=== PATIENT | female | born 2000 | race Caucasian/White ===

== ENCOUNTER 2023-01-08 12:24 | Outpatient (CLI) | payer BC, SELFPAY ==
--- NOTE | 2023-01-08 12:15 | CRLHL7_ITS ---
For Patients: As a result of the Cures Act, medical imaging exams and procedure reports are released immediately into your electronic medical record. You may view this report before your referring provider. If you have questions, please contact your health care provider. INDICATION: First trimester scan, establish dates. COMPARISON: None. TECHNIQUE: Real-time branch-scale imaging of the pelvis was performed. FINDINGS: Sonographic imaging demonstrates a single living intrauterine gestation. The embryo demonstrates a regular cardiac rate measuring 183 beats per minute. The embryo`s crown-rump length measurement of 1.7 cm corresponds to a gestational age of 8 weeks 0 days with a sonographic due date of August 20, 2023. There is a normal-appearing yolk sac measuring up to 3.9 mm. There are no gross abnormalities noted within the embryo at this early state of development. The placenta has not yet developed. The gestational sac has a normal appearance and there is no evidence of a perigestational hemorrhage. The amount of fluid within the sac appears appropriate for gestational age. The cervix is closed. The myometrium appears normal. The ovaries are of normal size. The right ovary measures 3.2 x 2.1 x 1.8 cm. The left ovary measures 3.4 x 2.5 x 2.1 cm. Small corpus luteum cyst of in the left ovary. There are no suspicious fluid collections noted in the cul-de-sac. IMPRESSION: Normal first trimester OB ultrasound exam. Gestational age calculated at 8 weeks 0 days with a sonographic due date of August 20, 2023. Dictated by Donis Awan MD @ 01/08/2023 4:05:48 PM (Electronically Signed)
== END 2023-01-08 12:25 | disposition home or self-care (01) ==
LOC: US 12:27
PROVIDERS: Visit Provider Registered Nurse
DX: Z34.90 Encounter for supervision of normal pregnancy, unspecified, unspecified trimester (principal)
CPT/HCPCS: 76817; 86592; 86703; 86762; 86787; 86803; 86850; 86900; 86901; 87086; 87340; 87491; 87591

== ENCOUNTER 2023-03-31 12:18 | Outpatient (CLI) | payer BC, SELFPAY ==
--- NOTE | 2023-03-31 12:15 | CRLHL7_ITS ---
For Patients: As a result of the Century Cures Act, medical imaging exams and procedure reports are released immediately into your electronic medical record. You may view this report before your referring provider. If you have questions, please contact your health care provider. INDICATION: Evaluate anatomy. COMPARISON: None. TECHNIQUE: Real time branch scale imaging of the fetus was performed. FINDINGS: Sonographic imaging demonstrates a single living intrauterine gestation. Fetus demonstrates a regular cardiac rate of 149 beats per minute. Fetus has a breech orientation and longitudinal lie. The placenta lies anteriorly without evidence of placenta previa. The placenta is somewhat low lying approximately 2.1 cm from the internal cervical os. Amniotic fluid volume appears normal. Single deepest vertical pocket: 4.2 cm. The cervix is closed and measures 4.0 cm in length. The composite ultrasound gestational age is calculated at 20 weeks 4 days with an estimated sonographic due date of August 14, 2023. The estimated weight is 386 grams which lies at the 91st percentile. The following biometric measurements were obtained: Biparietal diameter: 4.5 cm/19 weeks 4 days 32% Head circumference: 17.6 cm/20 weeks 1 day 48% Abdominal circumference: 16.2 cm/21 weeks 2 days 83rd% Femur length: 3.4 cm/20 weeks 6 days 72nd% The HC/AC ratio measures: 1.09 range (1.07-1.25) On anatomic survey, there is a normal appearance of the cerebral ventricles, cisterna magna and cerebellum. The nose, lips, and facial profile appear normal. The cervical, thoracic and lumbar spine are well visualized and appear normal. There is a normal four-chamber heart view and the left and right ventricular outflow tracts appear normal. diaphragm, stomach, kidneys and bladder appear normal. There is a normal three-vessel cord and cord insertion site. The four extremities appear normal. IMPRESSION: Normal OB ultrasound exam with concordance of clinical and sonographic dating. No intrinsic abnormalities noted on anatomic survey. Questionable low-lying placenta approximately 2.1 cm from the internal cervical os. Dictated by Donis Awan MD @ 03/31/2023 1:35:22 PM (Electronically Signed)
== END 2023-03-31 12:19 | disposition home or self-care (01) ==
LOC: US 12:19
PROVIDERS: Visit Provider Advanced Practice Midwife
DX: Z34.92 Encounter for supervision of normal pregnancy, unspecified, second trimester (principal); Z3A.20 20 weeks gestation of pregnancy
CPT/HCPCS: 76805

== ENCOUNTER 2023-05-24 12:08 | Outpatient (CLI) | payer BC, SELFPAY ==
--- NOTE | 2023-05-24 12:15 | CRLHL7_ITS ---
For Patients: As a result of the Century Cures Act, medical imaging exams and procedure reports are released immediately into your electronic medical record. You may view this report before your referring provider. If you have questions, please contact your health care provider. INDICATION: f/u low-lying placenta COMPARISON: 03/31/2023 TECHNIQUE: Real time branch scale imaging of the fetus was performed. FINDINGS: Sonographic imaging demonstrates a single living intrauterine gestation. Fetus demonstrates a regular cardiac rate of 138 beats per minute. Fetus has a transverse position. The placenta lies anteriorly. With transvaginal measurement, the anterior placental edge is located 1.9 cm from the internal cervical os. The cervix is closed and measures 5.4 cm. Amniotic fluid volume appears normal and there is a single deepest vertical pocket: 5.5 cm. The estimated weight is 1379gm which lies at the 93rd %. On the prior OB ultrasound exam dated 03/31/2023 the estimated weight was at the 91st%. BPD 70th percentile. HC 77th percentile. AC 89th percentile. FL 78th percentile. The HC/AC ratio measures 1.07 range (0.99-1.2). IMPRESSION: With transvaginal measurement, the anterior placental edge is located 1.9 cm from the internal cervical os. The cervix is closed and measures 5.4 cm. Sonographic gestational age 29 weeks 2 days and sonographic due date 08/07/2023. Sonographic age is 11 days ahead of the clinical age. Estimated weight 93rd percentile. Abdominal circumference 89th percentile. Dictated by Alex Wiggins MD @ 05/26/2023 6:25:44 AM (Electronically Signed)
== END 2023-05-24 12:09 | disposition home or self-care (01) ==
LOC: US 12:08
PROVIDERS: Visit Provider Advanced Practice Midwife
DX: O44.43 Low lying placenta NOS or without hemorrhage, third trimester (principal); O36.63X0 Maternal care for excessive fetal growth, third trimester, not applicable or unspecified; Z3A.29 29 weeks gestation of pregnancy
CPT/HCPCS: 76815; 76816; 76817; 86592

== ENCOUNTER 2023-06-23 09:10 | Outpatient (CLI) | payer BC, SELFPAY ==
--- NOTE | 2023-06-23 09:15 | CRLHL7_ITS ---
For Patients: As a result of the Century Cures Act, medical imaging exams and procedure reports are released immediately into your electronic medical record. You may view this report before your referring provider. If you have questions, please contact your health care provider. INDICATION: f/u low-lying placenta COMPARISON: 05/24/2023 TECHNIQUE: Real time branch scale imaging of the fetus was performed. FINDINGS: Sonographic imaging demonstrates a single living intrauterine gestation. Fetus demonstrates a regular cardiac rate of 137 beats per minute. Fetus has a vertex position. The placenta lies anteriorly without evidence of placenta previa. With transvaginal measurement, the edge of the placenta is located 6.4 cm from the internal cervical os. Amniotic fluid volume appears normal and there is a single deepest vertical pocket: 8.1 cm. KAYLEEN 17.0 cm. IMPRESSION: Vertex position. Placental edge is located 6.4 cm from the internal cervical os with transvaginal imaging. The previously noted low lying placenta has since resolved. Dictated by Alex Wiggins MD @ 06/23/2023 10:34:51 AM (Electronically Signed)
== END 2023-06-23 09:11 | disposition home or self-care (01) ==
LOC: US 09:11
PROVIDERS: Visit Provider Advanced Practice Midwife
DX: O44.40 Low lying placenta NOS or without hemorrhage, unspecified trimester (principal)
CPT/HCPCS: 76816; 76817

== ENCOUNTER 2023-07-22 13:45 | Outpatient (CLI) | payer BC, SELFPAY | END 2023-07-22 13:46 | disposition home or self-care (01) | PROVIDERS: Visit Provider Obstetrics & Gynecology | DX: Z34.93 Encounter for supervision of normal pregnancy, unspecified, third trimester (principal); O44.43 Low lying placenta NOS or without hemorrhage, third trimester; Z3A.36 36 weeks gestation of pregnancy | CPT/HCPCS: 87081; 87653 ==

== ENCOUNTER 2023-07-28 10:59 | Outpatient (CLI) | payer BC, SELFPAY ==
--- NOTE | 2023-07-28 11:00 | CRLHL7_ITS ---
For Patients: As a result of the Century Cures Act, medical imaging exams and procedure reports are released immediately into your electronic medical record. You may view this report before your referring provider. If you have questions, please contact your health care provider. INDICATION: Third trimester scan, evaluate growth. COMPARISON: 06/23/2023 TECHNIQUE: Real time branch scale imaging of the fetus was performed. FINDINGS: Sonographic imaging demonstrates a single living intrauterine gestation. Fetus demonstrates a regular cardiac rate of 134 beats per minute. Fetus has a vertex position. The placenta lies left anterior. Amniotic fluid volume appears normal and there is a single deepest vertical pocket: 8.5 cm. The estimated weight is 3442gm which lies at the 86th %. On the prior OB ultrasound exam dated 05/24/2023 the estimated weight was at the 93rd%. BPD 80th percentile. HC 69th percentile. AC 94th percentile. FL 66th percentile. The HC/AC ratio measures 0.98 range (0.89-1.06). IMPRESSION: Sonographic gestational age 38 weeks 1 day and sonographic due date of 08/10/2023. Sonographic age 8 days ahead of the clinical age. Estimated weight 86th percentile. Abdominal circumference 94th percentile. Dictated by Alex Wiggins MD @ 07/28/2023 12:30:12 PM (Electronically Signed)
== END 2023-07-28 11:00 | disposition home or self-care (01) ==
LOC: US 10:59
PROVIDERS: Visit Provider Obstetrics & Gynecology
DX: Z34.93 Encounter for supervision of normal pregnancy, unspecified, third trimester (principal); Z3A.38 38 weeks gestation of pregnancy
CPT/HCPCS: 76816

== ENCOUNTER 2023-08-02 15:00 | Emergency (ER) | payer BC, SELFPAY ==
[2023-08-02] VITALS (13 sets, daily range): BP systolic 104–129; BP diastolic 71–80; PULSE 87–115; RESP 19; TEMP 36.8; O2SAT 98–100
--- NOTE | 2023-08-02 16:10 | ED.GENADULT ---
HPI - General Adult General Chief complaint: Unspecified Complaint, Adult Stated complaint: brain fog, spot in vision Time Seen by Provider: 08/02/23 15:30 History of Present Illness HPI narrative: Patient reports some time this AM she had a spot in her vision. Also around this time she reports having difficulty finding her words, she describes as brain fog. Symptoms are better now but she feels like a beginning of a headache starting. Established delivery date 08/18/2023. 23-year-old woman sent over from [facility] with concerns of visual changes and ?brain fog?. The loss of vision she describes as centrally demonstrating a 4 in [place] or so. Seemed to be present though even when she was closing her eyes. Described as having some word-finding difficulty in a brain fog after that; it has been a few hours now and this is now resolved. Little over 37 weeks IUP currently. Was not noted to be hypertensive. Starting to have maybe some mild headache. Does get headaches but does not have a diagnosis of migraines. There is no focal weakness described. . due to arrest of descent. Otherwise recently noticed a speckling rash faintly erythematous over abdomen and thighs. Was itchy. I see evidence also on her hands. No fever. No particular exposures. Accompanied here by significant other and daughter. Related Data Home Medications Medication Instructions Recorded Confirmed docosahexaenoic acid 200 mg 200 mg PO DAILY 01/08/23 08/02/23 capsule ( DHA) ferrous sulfate 27 mg iron tablet 27 mg PO QDAY 07/07/23 08/02/23 magnesium 250 mg tablet 250 mg PO QDAY 07/07/23 08/02/23 Previous Rx's Medication Instructions Recorded metoclopramide HCl 10 mg tablet 10 mg PO Q6H PRN nausea and 05/24/23 (Reglan) vomiting #10 tabs Allergies Allergy/AdvReac Type Severity Reaction Status Date / Time No Known Drug Allergies Allergy Verified 08/02/23 14:35 Review of Systems Status of ROS: Reports: 6 or more systems reviewed and unremarkable except as noted in History and below [facility] Surgical History H/O removal of cyst ?Z98.890 - Other specified postprocedural states (ICD-10) H/O oral surgery ?Z98.890 - Other specified postprocedural states (ICD-10) Hx of section ?Z98.891 - History of uterine scar from previous surgery (ICD-10) Family History Maternal Grandfather Heart disease Maternal Grandmother Breast cancer Father Diabetes Paternal Grandmother Diabetes Mother Seizure disorder Social History Smoking Status: Never smoker Do you use any of these nicotine containing products: None Second hand tobacco smoke exposure: No How often do you have a drink containing alcohol: never How often do you have six or more drinks on one occasion: Never AUDIT-C Alcohol total score: 0 Non-prescribed substance use: denies use Little interest or pleasure in doing things: not at all Feeling down, depressed, or hopeless: not at all service: No Exam Narrative: Exam Narrative: Pleasant. Of good energy. Cranial nerves 2-12 intact. Extraocular movements are full and smooth without nystagmus. Pupils are equal brisk and accommodating. Head is atraumatic. Neck is supple. Strong and equal carotid upstroke. Lungs are clear. Heart in elevated rate but regular rhythm. Abdomen is appropriately gravid and nontender. Moving all extremities with good strength. No sensory deficits appreciated. Well-perfused peripherally. Subtle bilateral lower leg edema. Did not remove boots to assess further. Oropharynx unremarkable. Funduscopic exam with what appears to be healthy vasculature. Admittedly limited in this setting the optic discs appear to be sharp. Visual parsons appear full. Skin is warm and dry. There are irregularly shaped lightly erythematous macules scattered over the mid to lower half of the abdomen not exclusive to stretch lux. I do not see excoriations. There is subtle petechial rash on the dorsum of the right hand and bilateral upper thighs. Const: Vital Signs, click to edit/add: Vital Signs - 24 hr 08/02/23 15:18 08/02/23 17:13 08/02/23 17:18 Temperature 98.2 F Pulse Rate Pulse Rate [Pulse Oximeter] 115 H Respiratory Rate 19 Blood Pressure Blood Pressure [Ri ght Upper Arm] 129/80 Pulse Oximetry 99 100 100 Oxygen Delivery Me thod Room Air 08/02/23 17:23 08/02/23 17:28 08/02/23 17:41 Temperature Pulse Rate 100 Pulse Rate [Pulse Oximeter] Respiratory Rate Blood Pressure Blood Pressure [Ri ght Upper Arm] Pulse Oximetry 98 100 99 Oxygen Delivery Me thod 08/02/23 17:42 08/02/23 17:45 08/02/23 18:00 Temperature Pulse Rate 100 92 96 Pulse Rate [Pulse Oximeter] Respiratory Rate Blood Pressure 109/76 Blood Pressure [Ri ght Upper Arm] Pulse Oximetry 99 100 100 Oxygen Delivery Me thod 08/02/23 18:01 08/02/23 18:15 08/02/23 18:21 Temperature Pulse Rate 93 90 94 Pulse Rate [Pulse Oximeter] Respiratory Rate Blood Pressure 109/74 104/71 Blood Pressure [Ri ght Upper Arm] Pulse Oximetry 100 98 100 Oxygen Delivery Me thod 08/02/23 18:30 Temperature Pulse Rate 97 Pulse Rate [Pulse Oximeter] Respiratory Rate Blood Pressure Blood Pressure [Ri ght Upper Arm] Pulse Oximetry 100 Oxygen Delivery Me thod Documenting provider has reviewed patient's vital signs: yes Course Vital Signs Vital signs: Initial Vital Signs Temperature 98.2 F 08/02/23 15:18 Temperature Source Temporal Artery Scan 08/02/23 15:18 Pulse Rate 115 H 08/02/23 15:18 Respiratory Rate 08/02/23 15:18 Blood Pressure 129/80 08/02/23 15:18 Blood Pressure Mean 96 08/02/23 15:18 Pulse Oximetry 99 08/02/23 15:18 Oxygen Delivery Method Room Air 08/02/23 15:18 Vital Signs Temperature 98.2 F 08/02/23 15:18 Pulse Rate 115 H 08/02/23 15:18 Respiratory Rate 19 08/02/23 15:18 Blood Pressure 129/80 08/02/23 15:18 Pulse Oximetry 99 08/02/23 15:18 Oxygen Delivery Method Room Air 08/02/23 15:18 Temperature 98.2 F 08/02/23 15:18 Pulse Rate 97 08/02/23 18:30 Respiratory Rate 19 08/02/23 15:18 Blood Pressure 104/71 08/02/23 18:21 Pulse Oximetry 100 08/02/23 18:30 Oxygen Delivery Method Room Air 08/02/23 15:18 Medications Administered Medications: Discontinued Medications Generic Name Dose Route Start Last Admin Trade Name Freq PRN Reason Stop Dose Admin Sodium Chloride 1,000 mls @ 1,000 mls/hr 08/02/23 16:23 08/02/23 18:45 0.9 % Sodium Chloride 1000 Ml IV 08/02/23 17:22 Infused .Q1H ONE Infusion Medical Decision Making MDM Narrative Medical decision making narrative: May have an evolving headache. Otherwise does not appear to have symptoms/meet criteria consistent with preeclampsia as was original concerned described to me from clinic. Perhaps this was some form of atypical migraine. Subsequent attack of anxiety? --this seems more plausible after reviewing again notes from preceding office visit. She is receptive to this questioning. May have been ischemia to retinal artery? At this point relatively asymptomatic. I doubt significant vascular anomaly. Heart appears to be in a regular rhythm but elevated rate. Will need to assess for rhythm. Furthermore with this would rather avoid contrast necessary for adequate CT imaging. Do have MRI ability and can do basic head; this should be adequate assessment to identify recent injury/ischemic change or other vascular anomaly, intracranial abnormality or to prompt any further investigation. IV was placed receiving L normal saline. Was also assessed by Ob during this time. I did discuss this case with OB MD on-call. During course Lydia noted unusual vaginal fluid. This was assessed by Ob a nursing for amniotic fluid leak and AmniSure was negative. Also collected for wet prep which was unremarkable. Labs otherwise were reassuring. monitoring also was done and reassuring. MRI of head was reviewed. Radiology over-read as below Findings: The ventricles, sulci and gyri are normal size, shape and contour for age. The midline structures are centrally located with no evidence of shift. There are no suspicious intra or extra-axial fluid collections. No region of restricted diffusion. Expected flow voids in the cavernous carotids and basilar artery. The globes bilaterally appear within normal limits. Impression: 1. No radiographic evidence of acute intracranial abnormalities. Did obtain EKG prior to departure. This was normal sinus. See below. Unclear etiology to rash at this point. Recommended per conversation with Ob to conservative management. See patient discharge plan Lab Data Lab results reviewed: Yes I reviewed the patient's lab results Labs: Lab Results 08/02/23 08/02/23 08/02/23 Range/Units 16:24 16:44 17:30 WBC 7.82 (4.50-11.00) K/uL RBC 4.20 (4.00-5.20) m/uL Hgb 12.2 (12.0-16.0) gm/dL Hct 37.6 (33.0-51.0) % MCV 90 (80-100) fL MCH 29 (26-34) pg MCHC 32 (32-36) gm/dL RDW Coeff of Mayela 14.4 (11.5-15.5) % Plt Count 171 (140-440) K/uL Neut % (Auto) 82.4 H (42.0-72.0) % Lymph % (Auto) 12.5 L (20-44) % [place] % (Auto) 3.7 (0.0-11.0) % Eos % (Auto) 1.0 (0.0-7.0) % Baso % (Auto) 0.3 (0.0-3.0) % Neut # (Auto) 6.40 (1.7-7.0) K/uL Lymph # (Auto) 1.00 (0.90-2.90) K/uL [place] # (Auto) 0.30 (0.00-0.90) K/UL Eos # (Auto) 0.08 (0.00-0.50) K/uL Baso # (Auto) 0.02 (0.00-0.30) K/uL Abs Immat Gran (auto) 0.01 (0.00-0.30) K/uL Imm/Tot Granulo (auto) 0.1 % Sodium 136 (135-149) mmol/L Potassium 3.9 (3.6-5.1) mmol/L Chloride 103 (96-114) mmol/L Carbon Dioxide 26 (20-32) mmol/L Anion Gap 7 (7-15) mEq/L BUN 8 (5-24) mg/dL Creatinine 0.6 (0.5-1.5) mg/dL Estimated GFR 129 ml/min Glucose 80 (60-115) mg/dL Calcium 9.1 (8.4-10.6) mg/dL AST 31 (12-35) U/L ALT 17 (4-35) U/L Urine Color Yellow (Yellow) Urine Appearance Cloudy A (Clear) Urine pH 7.5 (5.0-8.5) Ur Specific [place] 1.020 (1.000-1.030) Urine Protein Trace A (Negative) Urine Glucose (UA) Negative (Negative) Urine Ketones Trace A (Negative) Urine Blood Negative (Negative) Urine Nitrite Negative (Negative) Urine Bilirubin Negative (Negative) Urine Urobilinogen 0.2 (0.2-1.0) Ur Leukocyte Esterase 1+ A (Negative) Urine RBC 0-2 (0-2) Urine WBC 2-5 (0-5) Ur Squamous Epith Cells Moderate A (None-Few) Urine Bacteria Moderate A (None) Membrane Rupture Negative Vaginal Trichomonas (None Seen) Vaginal Yeast (None Seen) Vaginal Clue Cells (None Seen) Lab Acknowledgement 08/02/23 08/02/23 Range/Units 17:38 17:57 WBC (4.50-11.00) K/uL RBC (4.00-5.20) m/uL Hgb (12.0-16.0) gm/dL Hct (33.0-51.0) % MCV (80-100) fL MCH (26-34) pg MCHC (32-36) gm/dL RDW Coeff of Mayela (11.5-15.5) % Plt Count (140-440) K/uL Neut % (Auto) (42.0-72.0) % Lymph % (Auto) (20-44) % [place] % (Auto) (0.0-11.0) % Eos % (Auto) (0.0-7.0) % Baso % (Auto) (0.0-3.0) % Neut # (Auto) (1.7-7.0) K/uL Lymph # (Auto) (0.90-2.90) K/uL [place] # (Auto) (0.00-0.90) K/UL Eos # (Auto) (0.00-0.50) K/uL Baso # (Auto) (0.00-0.30) K/uL Abs Immat Gran (auto) (0.00-0.30) K/uL Imm/Tot Granulo (auto) % Sodium (135-149) mmol/L Potassium (3.6-5.1) mmol/L Chloride (96-114) mmol/L Carbon Dioxide (20-32) mmol/L Anion Gap (7-15) mEq/L BUN (5-24) mg/dL Creatinine (0.5-1.5) mg/dL Estimated GFR ml/min Glucose (60-115) mg/dL Calcium (8.4-10.6) mg/dL AST (12-35) U/L ALT (4-35) U/L Urine Color (Yellow) Urine Appearance (Clear) Urine pH (5.0-8.5) Ur Specific [place] (1.000-1.030) Urine Protein (Negative) Urine Glucose (UA) (Negative) Urine Ketones (Negative) Urine Blood (Negative) Urine Nitrite (Negative) Urine Bilirubin (Negative) Urine Urobilinogen (0.2-1.0) Ur Leukocyte Esterase (Negative) Urine RBC (0-2) Urine WBC (0-5) Ur Squamous Epith Cells (None-Few) Urine Bacteria (None) Membrane Rupture Vaginal Trichomonas No Trichomonas Seen (None Seen) Vaginal Yeast No Yeast Seen (None Seen) Vaginal Clue Cells <20% Clue Cells Seen (None Seen) Lab Acknowledgement Test Added ECG Data Attestation: I personally reviewed and interpreted this ECG as follows: (Sinus rhythm rate of 85) Discharge Plan Discharge Clinical Impression: Transient visual loss, Headache Patient Disposition: Home w/ Parent or Adult Condition: Improved Additional Instructions: I am not sure what exactly happened to you today as discussed. I do not know if this represents an atypical migraine? After a period of observation you do appear to be healthy. The AmniSure was negative suggesting that there has not been any leak of fluid. Continue to focus on hydration. Since you can't remember the last one and after events of today, maybe would be a good idea to get a proper eye exam as discussed. Return for marked increase in/recurrence of headache, associated fever, repeated vomiting, elevating blood pressure, worsening shortness of breath . Per OB, Call OB provider with any concerns of vaginal discharge changes. Can use cetirizine (or similar) or topical hydrocortisone for rash. Be seen if gets significantly worse. Prescriptions: No Action ferrous sulfate 27 mg iron tablet 27 mg PO QDAY magnesium 250 mg tablet 250 mg PO QDAY DHA 200 mg capsule 200 mg PO DAILY metoclopramide HCl [Reglan] 10 mg tablet 10 mg PO Q6H PRN (Reason: nausea and vomiting) Qty: 10 0RF Rx Instructions: Take at onset of headache, may take 2nd dose if not improved in 6 hours. Follow Up/Referrals: Provider,Not a Local [Primary Care Provider] - Stand Alone Forms: [facility] Info Instructions
--- NOTE | 2023-08-02 16:22 | CRLHL7_ITS ---
For Patients: As a result of the Century Cures Act, medical imaging exams and procedure reports are released immediately into your electronic medical record. You may view this report before your referring provider. If you have questions, please contact your health care provider. Indication: Transient vision loss. Technique: Noncontrast sagittal T1, axial FLAIR, T2, diffusion weighted sequences are provided. No comparisons. Findings: The ventricles, sulci and gyri are normal size, shape and contour for age. The midline structures are centrally located with no evidence of shift. There are no suspicious intra or extra-axial fluid collections. No region of restricted diffusion. Expected flow voids in the cavernous carotids and basilar artery. The globes bilaterally appear within normal limits. Impression: 1. No radiographic evidence of acute intracranial abnormalities. Dictated by Vijay Khalil MD @ 08/02/2023 5:26:56 PM Dictated by: Vijay Khalil MD @ 08/02/2023 17:28:14 (Electronically Signed)
[2023-08-02 16:52] LABS: Basophils Absolute Auto 0.02 K/uL (0.00-0.30); Basophils Percent Auto 0.3 % (0.0-3.0); Eosinophils Absolute Auto 0.08 K/uL (0.00-0.50); Hematocrit 37.6 % (33.0-51.0); Hemoglobin* 12.2 gm/dL (12.0-16.0); Immature Granulocytes Abs Auto 0.01 K/uL (0.00-0.30); Immature Granulocytes Pct Auto 0.1 %; Lymphocytes Percent Auto 12.5 % (20-44); Mean Corpuscular HGB Conc 32 gm/dL (32-36); Mean Corpuscular Hemoglobin 29 pg (26-34); Mean Corpuscular Volume 90 fL (80-100); Monocytes Percent Auto 3.7 % (0.0-11.0); Neutrophils Percent Auto 82.4 % (42.0-72.0); Platelet Count* 171 K/uL (140-440); RDW Coefficient of Variation % 14.4 % (11.5-15.5); White Blood Count* 7.82 K/uL (4.50-11.00)
[2023-08-02 16:57] LABS: Slide Review Reflex No
[2023-08-02 17:00] LABS: Appearance Urine Cloudy (Clear); Bilirubin Urine Negative (Negative); Blood Urine Negative (Negative); Color Urine Yellow (Yellow); Glucose Urine Negative (Negative); Ketones Urine Trace (Negative); Leukocyte Esterase Urine 1+ (Negative); Nitrite Urine Negative (Negative); Protein Urine Trace (Negative); Urobilinogen Urine 0.2 (0.2-1.0); pH Urine 7.5 (5.0-8.5)
[2023-08-02 17:02] LABS: Chloride* 103 mmol/L (96-114); Sodium* 136 mmol/L (135-149)
[2023-08-02 17:03] LABS: Potassium* 3.9 mmol/L (3.6-5.1)
[2023-08-02 17:05] LABS: Creatinine* 0.6 mg/dL (0.5-1.5); Estimated Glomerular Filt Rate 129 ml/min
[2023-08-02 17:06] LABS: Anion Gap 7 mEq/L (7-15); Blood Urea Nitrogen* 8 mg/dL (5-24); Calcium* 9.1 mg/dL (8.4-10.6); Carbon Dioxide* 26 mmol/L (20-32); Glucose* 80 mg/dL (60-115)
[2023-08-02 17:07] LABS: Bacteria Urine Moderate; RBC Urine 0-2 (0-2); Squamous Epithelial Cell Urine Moderate (None-Few)
[2023-08-02 17:42] LABS: Amnisure Rom* Negative
[2023-08-02 17:59] LABS: Clue Cells <20% Clue Cells Seen (None Seen); Trichomonas No Trichomonas Seen (None Seen); Yeast No Yeast Seen (None Seen)
[2023-08-02 18:25] LABS: Alanine Aminotransferase* 17 U/L (4-35); Aspartate Amino Transferase* 31 U/L (12-35)
[2023-08-02] MEDS: 0.9 % SODIUM CHLORIDE 1000 ml 1,000 ML IV (18:29)
--- NOTE | 2023-08-02 18:37 | PC.OBNST ---
NST Note NST Note Start: 08/02/23 17:22 Freq: ONCE Status: Active Protocol: Document 08/02/23 18:34 DWAYNE (Rec: 08/02/23 18:37 DWAYNE [id number]) NST Note 2 Para (# of births) 1 EDC 08/18/23 Gestational Age In Weeks & Days 37 Weeks & 5 Days Other Complaints Visual changes and brain fog Reactive Yes Appropriate for Gestational Age Yes RN Rico Hansen RN Date 08/02/23 Reactive Yes Appropriate for Gestational Age Yes ALISON Bowman RNC Date 08/02/23 OB NST charge Yes Complete NST Note via Write Note Yes The provider's electronic signature indicates the NST is reactive/appropriate for gestational age. *Note to provider: If an addendum is required, open the patient's chart and click on the note under the Nurse/Allied Health tab.
== END 2023-08-02 18:53 | disposition home or self-care (01) ==
PROVIDERS: Obstetrics & Gynecology; Emergency Provider Family Medicine
DX: O26.893 Other specified pregnancy related conditions, third trimester (principal); H53.123 Transient visual loss, bilateral; R51.9 Headache, unspecified; Z3A.37 37 weeks gestation of pregnancy
CPT/HCPCS: 36415; 59025; 70551; 80048; 81001; 84112; 84450; 84460; 85025; 87086; 87210; 93005; 99213; 99284; 99285; J7030

== ENCOUNTER 2023-08-18 02:56 | Inpatient (IN) | payer BC, SELFPAY ==
[2023-08-18] VITALS (25 sets, daily range): BP systolic 113–140; BP diastolic 56–89; PULSE 71–129; RESP 16–18; TEMP 36.6–37.1; O2SAT 76–110; BMI 29.2
[2023-08-18 03:42] LABS: Basophils Absolute Auto 0.02 K/uL (0.00-0.30); Basophils Percent Auto 0.2 % (0.0-3.0); Eosinophils Absolute Auto 0.23 K/uL (0.00-0.50); Eosinophils Percent Auto 2.2 % (0.0-7.0); Hemoglobin* 12.3 gm/dL (12.0-16.0); Immature Granulocytes Abs Auto 0.04 K/uL (0.00-0.30); Immature Granulocytes Pct Auto 0.4 %; Lymphocytes Percent Auto 18.4 % (20-44); Mean Corpuscular HGB Conc 33 gm/dL (32-36); Mean Corpuscular Hemoglobin 29 pg (26-34); Mean Corpuscular Volume 88 fL (80-100); Monocytes Percent Auto 5.9 % (0.0-11.0); Neutrophils Percent Auto 72.9 % (42.0-72.0); Platelet Count* 183 K/uL (140-440); RDW Coefficient of Variation % 14.4 % (11.5-15.5); White Blood Count* 10.63 K/uL (4.50-11.00)
--- NOTE | 2023-08-18 03:45 | P.LDBA_ITS ---
Subjective History of Present Illness Date Seen: 08/18/23 Narrative: Patient is being admitted to Labor and Delivery for active labor. She is a 23 year old at 40.0 weeks gestation. On admission she is amnisure positive for ROM. Pt does not report a large gush of fluid or constant wetness. She stated she started losing her mucus plug on 08/16/23 and continues to have thicker mucus discharge since. After vaginal exam by RN she did think maybe her water broke so an AmniSure was done which is positive. Denies Her full history and physical was dictated by Pancho Price CNM on 07/28/23. Please see this for details. Specific Issues/Plans G 2 P 1001 : Shaq H&P done by Pancho Price CNM on 07/28/23 1. H/o d/t arrest of dilation at 9cm and chorio. Desires TOLAC * 07/22/23 TOLAC consult w/ NDP * 07/22/23 Consent for TOLAC signed * Chance of successful 67% * Should have had an ultrasound for EFW at 36 weeks but was not scheduled. US f/u at 37 weeks EFW 86%, KAYLEEN 20.1 2. Varicella equivocal. Rec. PP vaccine. 3.Questionable low-lying placenta approximately 2.1 cm from the internal cervical os. -Reviewed technically normal, but can do follow up u/s at 28 weeks, which she prefers -28 weeks: 1.9 cm from os, plan to follow-up at 32 weeks -32 week follow: 6.4 cm-RESOLVED 4. Anemia, Hgb 10.8 * Recommended q other day iron COVID vaccine: Not vaccinated. Recommended. Declined. Flu: declines Tdap: declines RSV: declines OB - Problem Based A/P Additional Plan (1) Pain during labor: Status: Acute (2) 40 weeks gestation of : Status: Acute (3) Previous section complicating : Problem details: Dilated to 9cm, developed chorio Status: Acute (4) Encounter for trial of labor: Status: Acute Plan Assessment:?? at 40.0 weeks gestation?? GBS negative? Patient is coping well with challenges of labor.?? Labor type: Spontaneous, Active labor? Category 1 FHR pattern.? Questionable ROM complicated by: Hx of c/s desiring TOLAC, Varicella equivocal, Anemia improved with QOD iron supplementation Plan:?? * ?Admit to L & D? * IV access: SL per TOLAC policy * Monitoring per policy: continuous ? * Candidate for analgesia of choice.? Planning epidural for pain management, may have when ready. * Expectant management at this time ? * Patient encouraged to reposition and ambulate to promote physiologic labor and . * Anticipate ? * Close monitoring for leaking of fluid and/or signs of chorioamnionitis * Surgery team and OB called in on standby for TOLAC Delivery/Labor/Induction Plan Plan: expectant management OB Exam Physical Exam Vital signs: Temp Pulse BP Pulse Ox 98 F 100 136/83 98 08/18/23 03:03 08/18/23 03:03 08/18/23 03:03 08/18/23 03:04 Narrative: Vitals Reviewed Constitutional:? Alert and oriented x3 HEENT:? Normocephalic, atraumatic Neck:? Supple Lungs:? Clear to auscultation bilaterally Heart:? Regular rate and rhythm, no murmur, rub or gallop Abdomen:? Soft, nontender, and gravid. Vertex by Willem's, confirmed with cervical exam. Extremities:? No edema or erythema Cervix: 5.5 cm/60%/-3 station/vertex per RN NST: 120 bpm/moderate variability/+accelerations/early decelerations/q 3-4 min contractions Detailed Labor and Delivery Exam Patient Gravid: Yes Dilation (cm): 5 Effacement (%): 60 Contraction Frequency: 3-4 min Contraction duration (sec): 60 Tachysystole: No Contraction intensity: Moderate Fetus (Single) Station: -3 Amniotic Membrane Status: intact Heart Rate Baseline: 120 Monitor Accelerations: Present Monitor Decelerations: Early Manager Of [employer] Variability: Moderate (6-25)
[2023-08-18 03:48] LABS: Amnisure Rom* POSITIVE
[2023-08-18 03:48] LABS: Slide Review Reflex No
--- NOTE | 2023-08-18 06:30 | P.OBPN_ITS ---
Subjective Date Seen: 08/18/23 Narrative: ?Lydia is coping well with labor pain/contractions around 0600 she had a large gush of clear fluid. ?Shaq is with her for support. ?She would like to continue with movement and repositioning for comfort and pain management.?She has been changing positions frequently with guidance from nursing. Objective Exam: General Appearance:? Calm, cooperative. ?No acute distress. Laughing between contractions. ? Psychiatric Exam: Alert and oriented, appropriate affect Abdomen: Gravid Ctx: ?Q 2-3 min apart. ?Strong FHTs: ?Baseline: . 120? ? Variability: moderate. ?Accels: +. ? ?Decels: ?occasional early and one late in the last 30 minutes. SVE: Membranes:?SROM ?clear fluid, bulging forebag noted with SVE Vital Signs: Last Vital Signs Temp 98.3 F 08/18/23 04:11 Pulse 100 08/18/23 03:03 Resp 18 08/18/23 04:11 BP 136/83 08/18/23 03:03 Pulse Ox 98 08/18/23 03:04 Pelvic Exam Dilation (cm): 8 Effacement (%): 100 Station: -2 Contractions Monitor mode: External Contraction Frequency: 2-3 Contraction pattern: Regular Contraction intensity: Strong/Firm Assessment Assessment: active labor Station: -2 Amniotic Membrane Status: SROM Status: Category ll Heart Rate Baseline: 120 Group Home Variability: Moderate (6-25) Monitor Accelerations: Present Monitor Decelerations: Early (one late in last 30 minutes) Labor Progress: Fetus is still -2 station, feels OP by Willem's. Plan Plan: Assessment:?? at 40.0 gestation?? GBS negative Patient is coping well with challenges of labor.?? Labor type: Spontaneous, active labor? complicated by: Hx of c/s desiring TOLAC, Varicella equivocal, Anemia improved with QOD iron supplementation ? Plan:?? Continuous monitoring Continue with routine intrapartum cares as ordered.?? Patient encouraged to move and change positions to promote physiologic labor and .?? Nonpharmacologic comfort measures per patient preference. Candidate for analges ia of choice if desired. Anticipate progress to NVD. ?
--- NOTE | 2023-08-18 09:00 | PM.OBPNL ---
Subjective Date Seen: 08/18/23 Narrative: Lydia is a at 40 0/7 weeks gestation that presented earlier this morning in labor. She progressed to 8 cm at 0630 am. Fetus at this time was noted to be direct OP. She has made multiple position changes to try to encourage rotation. At about 0815, she had SROM of forebag with clear fluid, since then she has continued leaking clear fluid. She was rechecked at 0830 with minimal change noted but fetus was noted to be in LOT presentation at -2 station. She is coping well with position changes, RN continuously at bedside, and she has 3 family members at her bedside. She does not desire an epidural at this time but desires to continue with position changes. Objective Exam: Objective: Constitutional: Alert and oriented x3, moderate/severe distress, coping well Vital signs stable, see nurse documentation Abdomen: gravid, contractions palpate moderate/strong with contractions and soft between Cervix: 9.5 cm, rim on right side/80%/0 station/vertex NST: 125 bpm/moderate variability/15x15 accelerations/occasional early decelerations/contractions every 1-3 minutes Vital Signs: Last Vital Signs Temp 98.1 F 08/18/23 08:31 Pulse 78 08/18/23 07:28 Resp 18 08/18/23 06:15 BP 135/77 08/18/23 07:28 Pulse Ox 98 08/18/23 03:04 Pelvic Exam Dilation (cm): 9.5 Effacement (%): 80 Station: 0 Contractions Monitor mode: External Contraction pattern: Regular Contraction intensity: Strong/Firm Assessment Assessment: active labor Station: 0 Amniotic Membrane Status: SROM Status: Category ll Heart Rate Baseline: 125 Health Science Writer Variability: Moderate (6-25) Monitor Accelerations: Present Monitor Decelerations: Early Plan Plan: ASSESSMENT:? 23 at 40 0/7 weeks gestation? complicated by:?TOLAC, Anemia, Varicella non-immune Labor type: Spontaneous, Active labor? Category 2 FHR pattern.?? Labor complicated by: TOLAC, protracted active labor? GBS negative? ? PLAN:? 1. Routine intrapartum cares as ordered. Continue with expectant management? 2. Monitoring per policy, continuous with TOLAC status.? 3. Planning unmedicated . Candidate for analgesia of choice if desired. 4. Patient encouraged to reposition and ambulate to promote physiologic labor and .? 5. Wendie ALY, aware of patient status and slow labor progression. Continue with current plan. 6. Anticipate ?
[2023-08-18] MEDS: LACTATED RINGERS 1000 ML 1,000 ML 1200 ML IV (10:25)
--- NOTE | 2023-08-18 10:33 | PM.OBPNL ---
Subjective Time Seen by Provider: 10:25 Date Seen: 08/18/23 Narrative: Ms. Joiner is a 23yo at 40w0d GA admitted for YAS as a TOLAC. Ob history notable for prior performed for arrest of dilation (9cm) in the setting of chorioamnionitis, success score of 67% s/p consult. Her labor course has been complicated by labor dystocia in the active phase and category 2 FHR tracing. She is a CNM patient, s/p huddle with Ximena Richardson last at about 0915 when she was 8/80/-2 and s/p ROM with OT position at that time. FHR was reassuring at that time, last accelerations at approximately 0920. Since that time, she had a ?prolonged deceleration vs period of difficulty monitoring, where FSE was placed. She has had marked variability with ongoing variable decelerations with contractions since that time. She is anterior lip, reducible per nursing report. I initiated another huddle with Lydia's primary provider, at the bedside her variability does not sound marked and there is question of artifact from the FSE. Discussed we could briefly switch to the external monitor to see if marked variability is again maintained - however, I do suspect the FSE is reliable where I am concerned for wellbeing in the setting of marked variability for >20 minutes. On her exam, Ximena notes the anterior lip is reducible with excellent maternal effort. She notes starting at 0 station, now +1 with expulsive efforts. We are in agreement that Ms. Joiner is not a candidate for expedited delivery via operative vaginal delivery, where we are left with delivery. We mutually agreed to observe for 10-15 minutes with close reassessment if any worsening condition were noted. Ximena returned to the bedside, FSE fell out and external monitoring was resumed. There was note of a normal baseline and moderate variability with EFM. I did present to the bedside to meet Lydia and relay our concerns for wellbeing in the setting of prior marked variability. I watched a pushing effort where excellent effort and descent are noted. Given improved status and appropriate progress in the second stage, expulsive efforts were continued with diligent FHR monitoring. Care was resumed by Ximena Richardson CNM. Objective Vital Signs: Last Vital Signs Temp 98.1 F 08/18/23 08:31 Pulse 78 08/18/23 07:28 Resp 18 08/18/23 06:15 BP 135/77 08/18/23 07:28 Pulse Ox 98 08/18/23 03:04 Pelvic Exam Dilation (cm): 9.5 Effacement (%): 80 Station: 0 Contractions Monitor mode: External Contraction pattern: Regular Contraction intensity: Strong/Firm Assessment Station: 0 Amniotic Membrane Status: SROM Status: Category ll Heart Rate Baseline: 125 Monitor Accelerations: Present Monitor Decelerations: Early
--- NOTE | 2023-08-18 12:28 | W.PM.VAGDE_ITS ---
OB Procedure Vag Delivery Mother Details Mother Details: Lydia is a 23 year-old, 2, now Para 2, admitted on 08/18/23 at 40 0/7 weeks gestation. : 2 Para: 2 Weeks Gestation: 40.0 Admission Date: 08/18/23 Additional Details Amniotic Membrane Status: SROM Amniotic Membrane Rupture Date: 08/18/23 Amniotic Membrane Rupture Time: 08:15 Amniotic Membrane Fluid Description: Clear and Meconium Stained (At time of delivery) Analgesia/Anesthesia Type: Local Waterbirth: No Pitcoin: Yes (AMTSL only) Intrapartal Events: Distress Labor Onset: 05:00 Complete: 09:50 Pushin:50 Heart: heart tones during second stage were category II with recurrent decelerations that resolved with position changes. MD consulted at start of pushing with FSE placement and Marked variability. Continuous monitoring at bedside by CNM during entered 2nd stage. MD was again consulted around 1120 for concern for bradycardia that was more persistent than previous. When able to obtain periods of a baseline, FHR was 100-120, continuous observations by provider. Peds provider called for attendance of due to FHR concerns. Delivery Details Delivery Date: 08/18/23 Delivery Time: 11:49 Route of delivery: Gender: Male Viability: Alive; Heart Rate Present Position at Delivery: OA Delivery Details: Patient was admitted for spontaneous onset of labor and had a protracted active labor phase. SROM noted at 0815 with clear fluid. After this she continued to leak large amounts of clear fluid with contractions and during pushing. Amnisure was positive on admission, however patient is uncertain of when she would have had ROM because she did not have any leaking of fluid prior to admission. Previous CNM noted forebag with cervical exam before SROM. presentation was initially OP to persistent ROT. FHR tracing was intermittently category II. An anterior rim was identified at 0945, FSE was applied, and patient attempted to push past anterior lip. She was pushing at 0950 and assumed complete after reduction of anterior lip. Marked variability present after FSE placement, Dr. Pressley was consulted at 1013. Pushing resumed with plan to evaluate over the next 15 minutes. During this time, FSE fell out and external monitoring was placed. marked variability resolved after placement of EFM, IV fluid bolus given at this time. Dr. Pressley at bedside at about 1020 and was agreeable with close monitoring and continued pushing. Pt pushed well. At 1120, Dr. Pressley was again consulted due to concern for bradycardia with slower return to baseline and maternal fatigue. Due to position, unable to assist with forceps or vacuum. Decision was made to attempt manual rotation, consent was obtained from patient. See Dr. Pressley's note for further documentation. Successful rotation to OA. She quickly pushed to , Dr. Pressley remained at bedside due to heart tones. of a viable male at 1149 in semi- fowlers on the bed. Vertex delivered OA. Nuchal cord identified and easily reduced. No shoulder. Body delivered easily and without incident. Infant passed to mothers abdomen with a vigorous cry. Large amount of moderately thick meconium stained fluid at time of delivery. Cord was clamped and cut at 4 minutes. Peds provider in attendance, taken to warmer for further assessment. APGARS were 6 at one minute and 8 at five minutes respectively. Mouth was bulb suctioned. Intact placenta with a 3 vessel cord delivered spontaneously at 1155. Fundus firm. Right labia laceration identified and repaired in typical fashion. QBL 100 cc. IV pitocin only for AMTSL. Mother and baby stable; mother plans to breastfeed. Infant weight 7lb 8oz. 1 Minute Interval Total Score: 6 5 Minute Interval Total Score: 8 Additional Details Shoulder Dystocia: No Placenta Delivery Time: 11:55 Placental Delivery Description: Spontaneous Delivery repair: Vicryl Procedure Done: Global Blood Loss: 100 Laceration: Periurethral - 1st Degree Blood Loss Measurement Type: QBL Bakri Used: No Sponge/Need Count Correct: Yes Cord Vessel Description: 3 Vessels, Nuchal Cord and Reduced Event Summary Status: Mother and were stable after delivery. Disposition: floor
--- NOTE | 2023-08-18 12:47 | PM.OBCN1 ---
OB - CN: HPI Date of Consult Time Seen by Provider: 11:20 Date Seen: 08/18/23 Patient: [facility] Patient Consult date: 08/18/23 Requesting Physician: Ximena Richardson CNM Primary Care Provider: Not a Local Provider Consult Narrative Narrative: Ms. Joiner is a 23yo at 40w0d GA admitted for YAS as a TOLAC. Ob history notable for prior performed for arrest of dilation (9cm) in the setting of chorioamnionitis, success score of 67% s/p consult. Her labor course has been complicated by labor dystocia in the active phase and category 2 FHR tracing. Please see prior documentation by myself and primary Ob provider, Ximena Richardson CNM. I was re-consulted on Ms. Joiner at 1117 in the setting of persistent category 2 FHR tracing in the second stage for consideration of operative vaginal delivery. I presented to the bedside at 1120 where FHR tracing was reviewed - gaps in tracing were noted but my assessment was significant for recurrent variable decelerations with some delay in return to baseline. Between contractions baseline was about 120bpm with moderate to marked variability. I completed an exam, where the position was noted to be LOT with station of +1 to 2, moderate caput. I explained to Ms. Joiner that she is not a candidate for operative vaginal delivery in the setting of OT position. We discussed risks, benefits and alternatives to manual rotation - including pain, FHR changes, failure to rotate, cord prolapse. We alternatively reviewed ongoing expectant management vs proceeding to in the setting of persistent category 2 FHR tracing. Given excellent descent and maternal expulsive efforts with baseline of 120 with moderate variability at that time - we mutually agreed trial of rotation was reasonable but we would not tolerate a prolonged period of pushing to follow given concern for wellbeing. Verbal consent for manual rotation was obtained. Exam performed, where LOT position was again confirmed. The head was gently elevated and was easily rotated counter clockwise to direct OA. Maintained position manually until contraction began, at which time I guided head along with maternal expulsive efforts where excellent descent was noted immediately to +2 with direct OA position. I explained that if necessary, we could now offer operative vaginal delivery via forceps/vacuum. Baseline persisted at 120bpm with moderate variability, recurrent variables noted. Care was resumed by Ximena Richardson CNM with myself at the bedside in case expedited delivery were to be required. Lydia continued to push with excellent effort and descent, where she quickly pushed to . She had an of a viable male at 1149. APGARs were 6 and 8 at 1 and 5 minutes, respectively. Please see delivery note by Ximena Richardson CNM for complete details. History History 2 Elective abortions Para 1 Spontaneous abortions Hx # Term Pregnancies 1 Ectopic pregnancies Hx # Pregnancies Multiple births Number of Living Children 0 Past Pregnancies Del. Date GA/Weeks Outcome Route wt Inf Gender Labor Lgth Anesthesia Location Provider Compli 06/03/21 40 live - full term 7 lb 12 oz Female [facility] Delivery Date: 06/03/21 Last Updated by: Yolis Judge ~ CARD FOLDER, CARD FOLDER Intra Chorioamnionitis Labs GBS status: negative OB Labs: Lab Assessment Start: 08/18/23 02:59 Freq: ONCE Status: Complete Protocol: PC.OBGBS Activity Type Activity Date Activity User E-sign Co-sign Detail Recorded Client Recorded Date Recorded By Document 08/18/23 03:32 ALEJANDRAWILBER [id number] 08/18/23 03:33 MARIELY 08/18/23 03:32 Lab Assessment GBS Status negative GBS Additional Criteria None No Treatment Needed OK Are Labs Available Yes Maternal Blood Type A Maternal RH Factor Positive Evaluate Maternal Rubella Immune Status Immune Hepatitis B Surface Antigen Negative Maternal HIV Status Negative Maternal Syphillis (RPR) Status Negative PFS PFS Surgical History H/O removal of cyst ?Z98.890 - Other specified postprocedural states (ICD-10) H/O oral surgery ?Z98.890 - Other specified postprocedural states (ICD-10) Hx of section ?Z98.891 - History of uterine scar from previous surgery (ICD-10) Family History Maternal Grandfather Heart disease Maternal Grandmother Breast cancer Father Diabetes Paternal Grandmother Diabetes Mother Seizure disorder Social History What is your current living situation?: I presently have a place to live Problems where you live: no known problems In the past 12 months, utilities in danger of being shut off: no In past 12 months, lack of transportation kept you from medical appts, meetings, work, or getting things needed for daily living: no In the past 12 mos, have been you worried that your food would run out before you had money to buy more?: never true In the past 12 mos, the food you bought just didn't last and you didn't have money to buy more?: never true Smoking Status: Never smoker Do you use any of these nicotine containing products: None Second hand tobacco smoke exposure: No How often do you have a drink containing alcohol: never How often do you have six or more drinks on one occasion: Never AUDIT-C Alcohol total score: 0 Non-prescribed substance use: denies use How often does anyone, including family, friends and others, physically hurt you: never How often does anyone, including family, friends and others, insult or talk down to you: never How often does anyone, including family, friends and others, threaten you with harm: never How often does anyone, including family, friends and others, scream or curse at you: never Little interest or pleasure in doing things: not at all Feeling down, depressed, or hopeless: not at all service: No Meds Home Medications and Allergies Home Medications Medication Instructions Recorded Confirmed Type docosahexaenoic acid 200 mg 200 mg PO DAILY 01/08/23 08/18/23 History capsule ( DHA) ferrous sulfate 27 mg iron tablet 27 mg PO QDAY 07/07/23 08/18/23 History magnesium 250 mg tablet 250 mg PO QDAY 07/07/23 08/18/23 History Allergies Allergy/AdvReac Type Severity Reaction Status Date / Time No Known Drug Allergies Allergy Verified 08/18/23 03:15 OB - H&P: Exam Physical Exam: Vital signs: Temp Pulse Resp BP Pulse Ox 98.1 F 100 16 122/58 L 76 L 08/18/23 08:31 08/18/23 12:40 08/18/23 12:40 08/18/23 12:40 08/18/23 10:39 OB - Results Labs Labs: Short CBC 08/18/23 Range/Units 03:30 WBC 10.63 (4.50-11.00) K/uL Hgb 12.3 (12.0-16.0) gm/dL Hct 37.0 (33.0-51.0) % Plt Count 183 (140-440) K/uL OB - CN: A/P Assessment and Plan (1) Pain during labor: Status: Acute (2) 40 weeks gestation of : Status: Acute (3) Previous section complicating : Problem details: Dilated to 9cm, developed chorio Status: Acute (4) Encounter for trial of labor: Status: Acute
[2023-08-19] MEDS: IBUPROFEN 600 MG TABLET PO (00:33)
[2023-08-19 00:42] VITALS: BP 113/79; RESP 16; O2SAT 116
[2023-08-19 05:06] VITALS: BP 111/67; PULSE 105; RESP 16; TEMP 36.8
[2023-08-19] MEDS: ACETAMINOPHEN 500 MG TABLET 1000 MG PO (05:18)
[2023-08-19 09:00] VITALS: BP 95/64; PULSE 103; RESP 16; TEMP 36.6; O2SAT 99
[2023-08-19] MEDS: DOCUSATE SODIUM 100 MG CAPSULE PO (09:11)
--- NOTE | 2023-08-19 09:11 | PM.OBDSVD1 ---
DS: Providers Provider Time Seen by Provider: 09:11 Date Seen: 08/19/23 Date of admission: 08/18/23 02:56 Primary care physician: Not a Local Provider Admitting Clinician: Nakia Price CNM Consults: 08/18/23 12:27 Consult to Physician [CONS] Routine Comment: Consulting Provider: Hali Pressley Has provider been notified: Yes Attending Physician on discharge: Nakia Price CNM Date of Discharge: 08/19/23 DS: Diagnosis Discharge Diagnosis (1) , delivered: Status: Acute (2) Lactating mother: Status: Acute Exam Narrative: Exam Narrative: VSS, afebrile GENERAL APPEARANCE: ?normal affect, alert, no distress MOOD: ?appropriate HEENT: normocephalic, neck supple, full ROM CHEST: ?Symmetrical chest wall movement. ?Normal respiratory effort. ?Clear to auscultation HEART: ?regular rate and rhythm ABDOMEN: ?soft, non-tender. Uterine fundus is firm, 1 below Umbilicus, Midline and is appropriate for the stage of recovery. ?Bowel sounds present. PERINEUM: ?mild edema of the perineum, there is a right labial laceration that is healing well. EXTREMITIES: ?normal and no edema Const: Vital Signs, click to edit/add: Vital Signs - 24 hr 08/18/23 09:40 08/18/23 10:27 08/18/23 10:38 Temperature 98.3 F 98.2 F Pulse Rate Pulse Rate [Blood Pressure Cuff] Respiratory Rate Blood Pressure Blood Pressure [Ri ght Arm] Pulse Oximetry 93 Oxygen Delivery Me thod 08/18/23 10:39 08/18/23 11:10 08/18/23 11:55 Temperature 97.8 F Pulse Rate 104 H Pulse Rate [Blood Pressure Cuff] Respiratory Rate Blood Pressure 125/66 Blood Pressure [Ri ght Arm] Pulse Oximetry 76 L Oxygen Delivery Me thod 08/18/23 12:10 08/18/23 12:10 08/18/23 12:25 Temperature Pulse Rate 129 H 103 H Pulse Rate [Blood Pressure Cuff] Respiratory Rate 16 Blood Pressure 127/61 113/56 L Blood Pressure [Ri ght Arm] Pulse Oximetry Oxygen Delivery Me thod 08/18/23 12:25 08/18/23 12:40 08/18/23 12:40 Temperature 98.5 F Pulse Rate 100 Pulse Rate [Blood Pressure Cuff] Respiratory Rate 16 16 Blood Pressure 122/58 L Blood Pressure [Ri ght Arm] Pulse Oximetry Oxygen Delivery Me thod 08/18/23 12:55 08/18/23 13:10 08/18/23 13:25 Temperature Pulse Rate 82 114 H 96 Pulse Rate [Blood Pressure Cuff] Respiratory Rate Blood Pressure 122/59 L 121/62 116/60 Blood Pressure [Ri ght Arm] Pulse Oximetry Oxygen Delivery Me thod 08/18/23 13:40 08/18/23 18:02 08/18/23 21:00 Temperature 97.8 F 98.7 F Pulse Rate 95 Pulse Rate [Blood Pressure Cuff] Respiratory Rate 16 16 Blood Pressure 115/58 L Blood Pressure [Ri ght Arm] 128/75 113/79 Pulse Oximetry 110 H Oxygen Delivery Me thod Room Air Room Air 08/19/23 00:42 08/19/23 05:06 Temperature 98.2 F Pulse Rate Pulse Rate [Blood Pressure Cuff] 105 H Respiratory Rate 16 16 Blood Pressure Blood Pressure [Ri ght Arm] 113/79 111/67 Pulse Oximetry 116 H Oxygen Delivery Me thod Room Air Room Air Documenting provider has reviewed patient's vital signs: yes OB - DS: Summary Hospital Course Hospital Course: Lydia is a 23 y.o. G 2 P 2 who was admitted to [facility] for labor/TOLAC. ?She had an uncomplicated NVD, successful . The patient feels well. ?The pain is well controlled with current medications. ?She has no new complaints. ?She is breast feeding and reports things are going well.? the patient has done well.? Vitals have been stable.? She has remained afebrile.? Has a good appetite, is tolerating a general diet. ?She is voiding without difficulty.? She is passing gas and has not had a bowel movement.? She is ambulating and denies any dizziness.? Has Small amount of rubra lochia. She is planning NFP for prevention. Problems: none plan: Discharge home with baby. Follow up in 2 weeks and 6 weeks. , may follow up with if needed Peripartum Data Infant delivery method: complications: none [place] Gender: Male Discharge Plan: Home Status at Discharge Functional status at discharge: independent ambulation Overall status at discharge: patient is progressing back to baseline Time Spent with Patient Time attestation: Total time spent providing and/or coordinating discharge services: Time spent: Less than 30 minutes Discharge Plan Discharge Disposition: Home, Self-Care Date of Admission: 08/18/23 02:56 Attending Provider on Discharge: Jacque Tabor Consulting Providers: Hali Pressley Primary Care Provider: Provider,Not a Local Condition: Stable Anticipated Discharge Date/Time: 08/19/23 14:00 Discharge Medications: New docusate sodium 100 mg Capsule 100 mg PO BID PRNQty: 100 0RF Rx Instructions: Take 1 cap 1-2 times a day as needed for constipation ibuprofen 600 mg Tablet 600 mg PO Q6H PRNQty: 60 0RF Continued magnesium 250 mg tablet 250 mg PO QDAY DHA 200 mg capsule 200 mg PO DAILY Discontinued ferrous sulfate 27 mg iron tablet 27 mg PO QDAY Discharge Orders: Discharge Order (Routine); Ordered 08/19/23 Ordered By: Jacque Tabor Patient Education: OB Over the Counter Medication Information, OB Vaginal/Breast Feeding Additional Instructions: Follow up in 2 weeks and 6 weeks Activity Level: Activity as Tolerated Discharge Diet: Regular Follow Up Appointments: Provider,Not a Local [Primary Care Provider] - Forms: [employer] Info Instructions
[2023-08-19 12:00] VITALS: BP 100/64; PULSE 101; RESP 16; TEMP 36.6; O2SAT 98
== END 2023-08-19 15:28 | disposition home or self-care (01) | DRG 560 ==
LOC: OB OUT 02:57 → OB 02:57
PROVIDERS: Admitting Provider Advanced Practice Midwife; Visit Provider Advanced Practice Midwife
DX: O34.211 Maternal care for low transverse scar from previous cesarean delivery (principal); O76 Abnormality in fetal heart rate and rhythm complicating labor and delivery; O64.8XX0 Obstructed labor due to other malposition and malpresentation, not applicable or unspecified; O77.0 Labor and delivery complicated by meconium in amniotic fluid; O70.0 First degree perineal laceration during delivery; O99.02 Anemia complicating childbirth; D64.9 Anemia, unspecified; Z37.0 Single live birth; Z3A.40 40 weeks gestation of pregnancy
CPT/HCPCS: 36415; 84112; 85025; 86850; 86900; 86901; A9270; J7120

== ENCOUNTER 2023-09-20 09:14 | Outpatient (CLI) | payer BC, SELFPAY ==
--- NOTE | 2023-09-20 17:00 | W.PM.LAC.MC ---
Consult Note - Mom Date of Visit Date of visit: 09/20/23 dairy feed sales consultant: Le Larose Visit Code: Visit Patient's Information Phone number: [phone] : 2 Para: 2 Allergies No Known Drug Allergies Allergy (Verified 09/02/23 10:25) Mother's Medical History: Medical History (Updated 09/02/23 @ 10:19 by Ximena Richardson CNM) , delivered ?O34.219 - Maternal care for unspecified type scar from previous delivery (ICD-10) Delivery Information Delivery type: Weeks Gestation: 40.0 Gestational Age: AGA Weight: 3.39 kg Discharge Weight: 3.39 kg Baby's Information Baby's Age at Visit: one month Baby's Provider or Clinic: Dr. Nguyen Jaundice: No Reason for Consult Reason for Consult: difficulty latching, concern for tongue tie Current Frequency of Day Feedings: every 2 - 3 hours around the clock Both Breasts: Yes Pumping Pumping: Yes (2 - 3 times/day) Quantity Pumped: 2 - 3 oz total each time Supplementing EMB Supplement: No Formula Supplement: No Baby Elimination Number of Wet Diapers a Day: 6 - 8 times/day Number of BM a Day: about 6 tiems/day, yellow and seedy Breast/Nipple Condition Breast Information: WNL Engorgement: No Onsite Pre-Feed weight: 4.578 kg Post-Feed weight: 4.602 kg Milk Transferred (mL): 24 Assessments/Interventions Assessments/Interventions: Met with mom and this now one month old ex-term AGA baby for consult. She reports baby is clicking and sputtering when he nurses; also states milk leaks from his mouth throughout the feeding. She's concerned he may have a tongue tie. She reports baby is nursing every 2 - 3 hours during the day. He's usually satisfied after one side and feedings last about 20 minutes. He does a little better if she expresses a little milk before latching him. She pumps on occasion but hasn't introduced a bottle yet. States he likes his pacifier, but he looses it pretty frequently. Breasts WNL- symmetrical with rounded lower quadrants, intramammary distance < 1.5 inches. Nipples are everted and don't flatten or retract on compression, no damage noted. Baby has gained 44 grams/day since his last visit with PCP on 08/24. Mom denies any caput/cepalohematoma at delivery. States baby has equal ROM when turning his head and moving his extremities. Baby's palate is arched. Baby's upper lip was difficult to flange, the gums blanched, and he has a blister to his upper lip. He didn't want to suck consistently on a finger, but when he did the tongue barely extended over the gum line. The tongue had fairly good lateralization to the right, with more canoeing to the left. The lower frenulum looked like it might be posterior. Mom latched baby in the cross cradle hold on the left and the latch appeared deep but mom was a little uncomfortable. After a few minutes, baby came off kind of choking/sputtering. Once baby was burped and mom was coached to exaggerate nipple to nose, baby had another deep latch and mom was more comfortable. He nursed for about 10 minutes but wasn't very aggressive. He didn't have much more trouble managing her flow; no clicking was heard. Mom offered the other side, but he wasn't interested. When he was weighed he had transferred 24 ml. Mom was shown and practiced an exercise and a stretch to help teach/help baby extend his tongue more easily. Plan: 1. Continue to nurse baby ALD. As his weight gain has been so good, ok to just offer the one side at each feeding. Suggested she continue hand expressing a little milk before latching him as she reports that seems to help him manage her flow a little easier. There was some milk that leaked at this feeding, but baby wasn't very aggressive and was smiling and kind of flirting with mom at this feeding. 2. Suggested she pump once/day or every few days as this is a good age to introduce the bottle. 3. Suggested dad offer a bottle of EBM daily or every few days, reviewed paced feeding. 4. Will try the exercise and stretch for a few weeks to see if there's improvement; also gave handout on local dentists for an evaluation. Will f/u by phone on 10/04/23. Meds Home Medications and Allergies Home Medications Medication Instructions Recorded Confirmed Type docosahexaenoic acid 200 mg 200 mg PO DAILY 01/08/23 09/02/23 History capsule ( DHA) magnesium 250 mg tablet 250 mg PO QDAY 07/07/23 09/02/23 History Allergies Allergy/AdvReac Type Severity Reaction Status Date / Time No Known Drug Allergies Allergy Verified 09/02/23 10:25
== END 2023-09-20 09:15 | disposition home or self-care (01) ==
PROVIDERS: Visit Provider Advanced Practice Midwife
DX: Z39.1 Encounter for care and examination of lactating mother (principal)
CPT/HCPCS: G0463

== ENCOUNTER 2024-01-31 11:00 | Outpatient (RCR) | payer BC, SELFPAY ==
--- NOTE | 2023-12-06 12:48 | PT.OPDNX ---
PT [facility] Daily Note PT [facility] Daily Note Start: 11/08/23 10:55 Freq: Status: Active Protocol: Document 12/06/23 09:35 ARR (Rec: 12/06/23 12:29 ARR [id number]) E-signed By Luz Marina Galvin DPT PT OP Daily Progress Note Visit Information Note Type Daily Note,Recert/Progress Note Visit Number 5 Insurance Information Recert Due Date 03/05/24 Insurance Name Medicaid,Blue Cross/[employer] Shield Insurance Information/Comments EVAL 11/08 / recert on 12/05 POC 1 x 10 / 1 x for an additional 8 TOTAL: 13 Medical Diagnosis care following vaginal delivery Z39.2 encounter for routine follow-up N81.89 other female genital prolapse Treating Diagnosis R27.8 Lack of coordination ( muscle incoordination) R10.2 Pelvic and perineal pain Referring MD Mindy Mckeon, FLORES Subjective Subjective -Stomach was sore after cupping x 2 days. -Vaginal scarring only noticed x 2 instances from last session. -Hard to find abdominal muscles with the exercises Home Exercise Home Exercise Comments OTHER: -PF CHeck ins 11/08 - 11/14 -HEP stretching to do 2 exercises per day alternating exercises OR to do all exercises in one day Access Code: [email or web address] URL: [email or web address] Date: 11/15/2023 Prepared by: Luz Marina Galvin Program Notes -Can STOP doing the pelvic floor drop exercise-Continue pelvic floor check in exercises-Can do the mobility exercises below 5-6x/wk for ALL exercises OR can do 2 exercises one day, the other 2 the next day and so forth Exercises - Sidelying Open Book Thoracic Lumbar Rotation and Extension - 1 x daily - 5-6 x weekly - 6-8 reps - Sidelying Diaphragmatic Breathing - 1 x daily - 5-6 x weekly - 6-8 reps - Segmental Cat Cow - 1 x daily - 5-6 x weekly - 3 sets - 4-5 reps - Diaphragmatic Breathing in Supported Child's Pose with Pelvic Floor Relaxation - 1 x daily - 5-6 x weekly - 40-45 sec hold Objective Other/Pertinent Objective INTERNAL EXAMINATION INTRAVAGINAL 11/08: -Sensation: intact to touch -Observation: -Perineum: normal -Cough: nil -Lifting contraction: visible lift -Bulge: bulge -Prolapse: anterior wall descent >1.5 cm above level of hymen Tenderness/pain to palpation/ tone: -Layer 1: ischiocavernosus / bulbospongiousus / superficial transverse perineal -Layer 2: External urtethral sphincter / deep transverse perineal / compressor urethra / sphincter urethrovaginalis -Layer 3: puborectalis / pubococcygeus / iliococcygeus Bilaterally with inc'd TTP and tone along R side Strength ( R / C / L): -Power (MMT): 3 -Endurance: 5 -Reps: 4 -Fast twitch: 5 -Relaxation of PFM after quick contractions: normal Other: -Breathing examination: dec?d posterior and lateral ribcage mvmt with inhalation -Coordination: poor TA contraction EXTERNAL OBJECTIVE 11/14/22: -Movement screen: MS flexion inc'd mobility into HS with reduced posterior femoral glide, reduced TS/LS. MS extension reduced TS. MS rotation reduced 25% ea way. -SLS: able to hold 30 sec with mild pelvic drop, inc'd foot pronation, knee hyperext bilat -Posture: IC higher R 1 thumbwidth. R ASIS and MM lower -Hip PROM: ER >90 L / 90 R. IR 30 L / 50 R. -Strength: 3+ L, 2+ R Other Tests: -Coordination: upper ab gripping with bearing down into belly -Breathing: dec?d posterior and lateral ribcage mvmt with inhalation -Myofascial palpation: Decreased connective tissue mobility with skin rolling at XXX areas -DR: <1/2 knuckle depth and 2 fingers at umbilicus Special tests: -Flexibility: neg - tends to have jt hypermobility Patient Instructed in Risks/Benefits Yes Therapeutic Exercise Therapeutic Exercise Minutes (minutes) 10 Therapeutic Exercise: To Restore TE: Indicated for improvement Functional Status in strengthening and mobility. -Handouts with written instructions and photographs of exercises were issued to the patient for exercises to be included in HEP. Answered patient questions regarding POC, and mobility/stretches to perform if pain occurs -Quadruped thread the needle into TS AROM rotation x 6 reps ea side -Bolstered child's pose breathing x 60 sec Gait & Stair Training Gait Training/Stairs Minutes (minutes) 15 Gait & Stair Training Comments MT: indicated for improving joint mobility, reducing tissue irritability, and improving range of motion. STM lower L/R lower quadrant above below, sides and over scar using hands tensioning scar tissue with breathing into tissue. PT instruction for pt completion as well this date Neuromuscular Re-Ed Neuromuscular Reeducation Minutes ( 30 minutes) Neuromuscular Reeducation Comments NMR: Indicated to facilitate improved muscle firing and postural awareness through the use of tactile cues. External Breathing x 4 reps -TA on exhale 2 x 5 reps MT as above -TA on exhale 3 x 5 reps -TA w/ball squeeze 2 x 5 reps -Bridge 2 x 10 reps - focus on tripod food, breathing, glut activation Instruction with all on palpation of muscle to improve motor firing patterns -Functional task: instruction on TA activation on exhale when picking up child to improve awareness of muscle firing during the day Treatment Minutes Timed Code Treatment Minutes 55 Total Treatment Time 55 Billing Units Manual Therapy Units 1 Neuromuscular Reeducation Units 2 Therapeutic Exercise Units 1 Assessment/Impression Assessment/Impression Improved activation of TA this date, better improvement after MT techniques as above. Due to level of soreness after cupping techniques, manual hands on techniques only this date with pt instruction on how to complete independently for 3-5 min prior to abdominal activation work. Continue to note glut inhibition, but improved since last session. Pt has additional session next wk then reducing to every other week. Plan of Care Physical Therapy Goals STG (within 5 visits) 1) Pt will demonstrate proper coordination of motor recruitment patterns for PF then TA activation during isometric activation while maintaining diaphragmatic breathing pattern 2) Pt will report at least 40% improvement in vaginal heaviness symptoms for improved ability to care for children 3) Pt will report at least 50% improvement in vaginal pain with sitting in any position to show reduced tissue sensitivity LTG (within 10 visits) 1) Pt will demonstrate proper coordination of motor recruitment patterns for PF then TA activation during dynamic UE/LE movements in all postures while maintaining diaphragmatic breathing pattern 2) Pt will report at least 80% improvement in vaginal heaviness symptoms for improved ability to care for children 3) Pt will report no longer having any vaginal pain with sitting in any position to show reduced tissue sensitivity Daily Plan of Care Comments ]-scar tissue mobilization for cesaren scar -Symptoms w/o doing vaginal STM in clinic -Review HEP (Consider any need for 90 90 swithc, rockbacks,) -PFTA coordination exercises SCHEDULE ADDITIONAL VISITS AFTER CURRENT SCHEDULED - assess what pt got scheduled. Recertification Information Initial Certification Date 11/08/23 Recertification Start Date 12/06/23 Recertification Due Date 03/05/24 Reasons to Continue Skilled Therapy Pt had been seen for peivlc and perineal pain after vaginal delivery for 5 visits from 11/08/23 to 12/06/23 during this episode of physical therapy. Focus of therapy on spine ROM, hip mobility, deep breathing, pelvic floor lengthening. Recent progression to proximal strengthening of core and gluts. Interventions including ther exercise, manual therapy , neuromuscular re-education, self-care. Pt at this time has not met all short/care home goals and is not yet independent with HEP. Skilled PT is indicated to continue at a frequency of 1x/wk reducing to every other week for an additional 8 visits within 90 days. Continued PT to work on proximal connection to TA, gluts and pelvic floor. Reducing scar tissue mobility/ pain in scar and perineal scar. Goals above are same as pt continues to make progress toward these goals. Maximal therapeutic improvement has not been reached. Provider Signature Shows Agreement With POC & Medical Necessity Physician Comment/Change Comment or Changes Physician NPI Number #
== END 2024-04-20 10:27 | disposition home or self-care (01) ==
PROVIDERS: Visit Provider Advanced Practice Midwife
DX: N81.89 Other female genital prolapse (principal); Z51.89 Encounter for other specified aftercare
CPT/HCPCS: 97110; 97112; 97140; 97161; 97535

== ENCOUNTER 2024-05-09 14:01 | Outpatient (CLI) | payer BC, SELFPAY ==
--- NOTE | 2024-05-09 14:00 | CRLHL7_ITS ---
For Patients: As a result of the Cures Act, medical imaging exams and procedure reports are released immediately into your electronic medical record. You may view this report before your referring provider. If you have questions, please contact your health care provider. OBSTETRICAL ULTRASOUND, 05/09/2024 INDICATION: Ultrasound for dates and viability. LMP: 03/07/2024 OMAR by LMP: 12/12/2024 Gestational Age: 9 weeks 0 days Previous Ultrasound: No TECHNIQUE: Transvaginal pelvic ultrasound. FINDINGS: Gestational sac: 1.1 cm Yolk sac: 3.1 mm Right ovary: 3.7 x 2.7 x 2.8 cm, CL 2.3 x 1.9 x 2.4 cm Left ovary: 2.4 x 1.7 x 1.5 cm IMPRESSION: 1. Gestational sac measuring 5 weeks 6 days. Yolk sac also present. No pole, although it may be too early. 2. Consider follow-up ultrasound in 1-2 weeks to confirm a viable . MIRELA WESLEY M.D. Body/Diagnostic Radiologist [email or web address] Transcribed: 2:[address]/Dictated by: Mirela Wesley MD @ 05/10/2024 12:45:00 PM (Electronically Signed)
== END 2024-05-09 14:02 | disposition home or self-care (01) ==
LOC: US 14:02
PROVIDERS: Visit Provider Physician Assistant
DX: Z34.91 Encounter for supervision of normal pregnancy, unspecified, first trimester (principal); Z3A.09 9 weeks gestation of pregnancy
CPT/HCPCS: 76817

== ENCOUNTER 2024-05-24 13:11 | Outpatient (CLI) | payer BC, SELFPAY ==
--- NOTE | 2024-05-24 13:15 | CRLHL7_ITS ---
For Patients: As a result of the Cures Act, medical imaging exams and procedure reports are released immediately into your electronic medical record. You may view this report before your referring provider. If you have questions, please contact your health care provider. HISTORY: viability and dating. COMPARISON: Early OB ultrasound from 05/09/2024 TECHNIQUE: Transabdominal ultrasound examination of the early was performed. FINDINGS: A single intrauterine gestational sac is seen with a pole. The crown-rump length measurement of 1.3 cm gives an estimated gestational age of 7 weeks 4 days with an estimated date of delivery of 01/06/2025. This correlates well with the previous ultrasound. Regular cardiac activity is seen at 179 BPM. There is no sign of free fluid in the pelvis. There is a thick-walled cyst in the right ovary which is probably a corpus luteum cyst of , measuring 1.6 x 1.2 x 1.0 centimeters. The left ovary can not be identified. IMPRESSION: 1. Single intrauterine gestation with regular cardiac activity, estimated age 7 weeks 4 days. 2. Appropriate interval growth compared to the previous ultrasound. 3. Corpus luteum cyst of in the right ovary. Dictated by Carl Ramos MD @ 05/24/2024 10:48:53 PM (Electronically Signed)
== END 2024-05-24 13:12 | disposition home or self-care (01) ==
LOC: US 13:11
PROVIDERS: Visit Provider Advanced Practice Midwife
DX: O36.80X0 Pregnancy with inconclusive fetal viability, not applicable or unspecified (principal); O34.81 Maternal care for other abnormalities of pelvic organs, first trimester; N83.11 Corpus luteum cyst of right ovary; Z3A.01 Less than 8 weeks gestation of pregnancy
CPT/HCPCS: 76817; 86703; 86706; 86803; 86850; 86900; 86901; 87086; 87340; 87491; 87591

== ENCOUNTER 2024-05-24 14:17 | Outpatient (CLI) | payer BC, SELFPAY ==
[2024-05-24 18:45] LABS: Chlamydia DNA Amplified* NOT DETECTED (No Detected); GC DNA Amplified* NOT DETECTED (No Detected)
== END 2024-05-24 14:18 | disposition home or self-care (01) ==
PROVIDERS: Visit Provider Registered Nurse
DX: Z34.81 Encounter for supervision of other normal pregnancy, first trimester (principal)
CPT/HCPCS: 86592; 86703; 86704; 86706; 86762; 86787; 86803; 86850; 86900; 86901; 87086; 87340; 87491; 87591

== ENCOUNTER 2024-08-17 12:13 | Outpatient (CLI) | payer BC, SELFPAY ==
--- NOTE | 2024-08-17 12:15 | CRLHL7_ITS ---
For Patients: As a result of the Century Cures Act, medical imaging exams and procedure reports are released immediately into your electronic medical record. You may view this report before your referring provider. If you have questions, please contact your health care provider. HISTORY: anatomic survey. COMPARISON: Early OB ultrasound from 05/24/2024. TECHNIQUE: Ultrasound examination of the is performed with transabdominal technique. FINDINGS: A single intrauterine gestation is seen in breech presentation with regular cardiac activity at 141 beats per minute. The placenta is posterior and is free of the cervical os. The placental grade is 1 and the amniotic fluid volume is normal. Single deepest vertical pocket: Normal at 4.0 cm. The cervix is nondilated and normal in length at 4.2 cm. BPD: 4.3 cm 19 weeks 0 days HC: 17.2 cm 19 weeks 5 days AC: 14.2 cm 19 weeks 4 days. 40th percentile FL: 3.3 cm 20 weeks 2 days The estimated age by ultrasound is 19 weeks 5 days, with an estimated date of delivery of 01/06/2025. This correlates well with the clinical age of 19 weeks 5 days in the previous ultrasound. The ultrasound ratios are normal. The estimated weight of 320 grams is at the 55th percentile based on the clinical dates. The anatomic survey demonstrates normal appearing intracranial structures with a normal septum pellucidum and normal cerebellum. The nuchal thickness is normal at 4 mm, and the lateral ventricle is normal in diameter at 6 mm. The upper lip, 4 chamber heart, left and right ventricular outflow tracts, diaphragm, stomach, cord insertion site, 3-vessel cord, kidneys, bladder and spine are normal in appearance. IMPRESSION: 1. Single intrauterine gestation in breech presentation with regular cardiac activity. 2. Estimated gestational age is 19 weeks 5 days. 3. There has been appropriate interval growth. 4. The estimated weight of 320 grams is at the 55th percentile based on the clinical dates. Dictated by Carl Ramos MD @ 08/18/2024 9:39:12 PM (Electronically Signed)
== END 2024-08-17 12:14 | disposition home or self-care (01) ==
LOC: US 12:14
PROVIDERS: Visit Provider Advanced Practice Midwife
DX: Z34.92 Encounter for supervision of normal pregnancy, unspecified, second trimester (principal); Z3A.19 19 weeks gestation of pregnancy
CPT/HCPCS: 76805

== ENCOUNTER 2024-10-13 08:27 | Outpatient (CLI) | payer OTHER, SELFPAY | END 2024-10-13 08:28 | disposition home or self-care (01) | LOC: NFLDREF 10-18 00:36 | PROVIDERS: Visit Provider Advanced Practice Midwife | DX: Z34.83 Encounter for supervision of other normal pregnancy, third trimester (principal) | CPT/HCPCS: 86592 ==

== ENCOUNTER 2024-11-08 12:57 | Outpatient (CLI) | payer OTHER, SELFPAY | END 2024-11-08 12:58 | disposition home or self-care (01) | LOC: US 12:57 | PROVIDERS: Visit Provider Obstetrics & Gynecology | DX: O26.843 Uterine size-date discrepancy, third trimester (principal); Z3A.32 32 weeks gestation of pregnancy | CPT/HCPCS: 76816 ==

== ENCOUNTER 2024-11-30 10:50 | Outpatient (CLI) | payer OTHER, SELFPAY | END 2024-11-30 10:51 | disposition home or self-care (01) | LOC: NFLDREF 12-02 21:11 | PROVIDERS: Visit Provider Advanced Practice Midwife | DX: Z34.93 Encounter for supervision of normal pregnancy, unspecified, third trimester (principal); Z3A.34 34 weeks gestation of pregnancy | CPT/HCPCS: 82728 ==

== ENCOUNTER 2024-12-13 10:20 | Outpatient (CLI) | payer OTHER, SELFPAY | END 2024-12-13 10:21 | disposition home or self-care (01) | LOC: NFLDREF 12-16 21:41 | PROVIDERS: Visit Provider Advanced Practice Midwife | DX: Z34.83 Encounter for supervision of other normal pregnancy, third trimester (principal) | CPT/HCPCS: 87081; 87653 ==

== ENCOUNTER 2025-01-12 09:11 | Outpatient (CLI) | payer OTHER, SELFPAY ==
--- NOTE | 2025-01-12 09:15 | CRLHL7_ITS ---
For Patients: As a result of the Century Cures Act, medical imaging exams and procedure reports are released immediately into your electronic medical record. You may view this report before your referring provider. If you have questions, please contact your health care provider. INDICATION: Post term TECHNIQUE: Ultrasound OB pelvis transabdominal. Real-time branch-scale imaging of the fetus was performed with color Doppler and spectral Doppler analysis of the umbilical artery without stress testing. COMPARISON: 11/08/2024 FINDINGS: Sonographic imaging demonstrates a single living intrauterine gestation. Fetus demonstrates a regular cardiac rate of 137 beats per minute. Fetus has a cephalic orientation. The placenta lies fundal. Amniotic fluid volume appears normal with a MVP of 4.6 cm. breathing movements, motion, and tone were all observed. IMPRESSION: Single viable intrauterine with a biophysical profile 04/20. Dictated by Keven Xiao MD @ 01/12/2025 9:56:27 AM (Electronically Signed)
== END 2025-01-12 09:12 | disposition home or self-care (01) ==
LOC: US 09:11
PROVIDERS: Visit Provider Advanced Practice Midwife
DX: O48.0 Post-term pregnancy (principal); Z3A.41 41 weeks gestation of pregnancy
CPT/HCPCS: 76819

== ENCOUNTER 2025-01-12 10:20 | Outpatient (CLI) | payer OTHER, SELFPAY | END 2025-01-12 10:21 | disposition home or self-care (01) | LOC: NFLDREF 01-18 18:13 | PROVIDERS: Visit Provider Advanced Practice Midwife | DX: O48.0 Post-term pregnancy (principal); Z3A.41 41 weeks gestation of pregnancy | CPT/HCPCS: 76819; 87081; 87653 ==

== ENCOUNTER 2025-01-13 23:10 | Outpatient (CLI) | payer OTHER, SELFPAY ==
[2025-01-13 23:36] VITALS: BP 121/80; PULSE 87
--- NOTE | 2025-01-14 01:35 | PC.OBNST ---
NST Note NST Note Start: 01/13/25 23:20 Freq: ONCE Status: Active Protocol: Document 01/14/25 01:34 POT (Rec: 01/14/25 01:35 POT No Response) NST Note 3 Para (# of births) 2 EDC 01/06/25 Gestational Age In Weeks & Days 41 Weeks & 1 Days Patient Presented with Complaint(s) of Contractions/cramping Reactive Yes ALISON Mon, RN Date 01/14/25 Reactive Yes ALISON Harvey RN Date 01/14/25 OB NST charge Yes Complete NST Note via Write Note Yes The provider's electronic signature indicates the NST is reactive/appropriate for gestational age. *Note to provider: If an addendum is required, open the patient's chart and click on the note under the Nurse/Allied Health tab.
== END 2025-01-14 01:30 | disposition home or self-care (01) ==
LOC: OB OUT 23:10 → OB 23:10
PROVIDERS: Visit Provider Midwife
DX: O47.1 False labor at or after 37 completed weeks of gestation (principal); Z3A.41 41 weeks gestation of pregnancy
CPT/HCPCS: 59025; G0463

== ENCOUNTER 2025-01-14 07:57 | Inpatient (IN) | payer OTHER, SELFPAY ==
[2025-01-14] VITALS (22 sets, daily range): BP systolic 101–142; BP diastolic 55–77; PULSE 77–123; RESP 16; TEMP 36.5–36.8; O2SAT 99; BMI 30.2
--- NOTE | 2025-01-14 08:26 | P.LDBA_ITS ---
Subjective History of Present Illness Date Seen: 01/14/25 Narrative: Patient is being admitted to Labor and Delivery for prodromal labor. She is exhausted, post term. She is a 24 year old at 41 1/7 weeks gestation. Her full history and physical was dictated by MAYRA Berman and MANUELA Jones CNM on 11/20/24. Please see this for details. Planning AMTSL. She thinks her water broke after arrival to hospital. Clear fluid with continued leaking starting at 8:09am. Specific Issues/Plans G3 P Partner: Shaq?, Daughter and son at home. it another Boy! H&P completed by MAYRA Berman and MANUELA Jones CNM on 11/20/24? ? # Closely spaced pregnancies. Delivery -2022 # History of (d/t arrest of dilation chorioamnionitis) and successful TOLAC Consult: 10/31/[address] Duvall; Consent signed based on her personal history is 92% based on MFMU calculator 36 growth US: declines, normal growth US at 32 weeks #Size less than dates - Growth US 11/08: EFW 1992g at 70%ile, breech, MVP 6.5cm, FHR 125 bpm # Varicella equivocal. Rec PP vaccine.? # Breech at 31.4, RESOLVED Cephalic, confirmed by bedside US at 34.5 (11/30/2021) Consider US on admission #Anemia, Hgb 10.0 at 34.5 weeks Oral iron recommended MWF ? Imaging:? 1st trimester: 1.Gestational sac measuring 5 weeks 6 days. Yolk sac also present. No pole, although it may be too early. 2.Consider follow-up ultrasound in 1-2 weeks to confirm a viable . Anatomy scan: 08/17/2024-normal findings, posterior placenta Others: Single viable intrauterine with a biophysical profile 04/20. 01/12/2025? ? COVID:??not vaccinated, recommended. Flu:???discussed; declined Tdap:?discussed; declines @ 28wks 32wk Mental Health:?11/08/24 34wk hgb:??11/30/24 (10.0) Pap: Due 05/24/27 Comments: ? OB - Problem Based A/P Additional Plan (1) High-risk supervision: Status: Acute (2) Pain during labor: Status: Acute (3) Anemia: Status: Acute (4) Short interval between pregnancies affecting , antepartum: Status: Acute (5) Hx successful (vaginal after ), currently : Status: Acute (6) Encounter for trial of labor: Status: Resolved Plan ASSESSMENT:?? 24 at 41 1/7 weeks gestation?? complicated by:??Anemia, breech (resolved), TOLAC Labor type:Spontaneous, Active labor?? Category 2 FHR pattern.??? Labor complicated by: Cat 2 tones, TOLAC, anemia?? GBS negative ?? PLAN:?? 1. Routine intrapartum cares as ordered. Continue with expectant management. Ro utine labs with type and screen.? 2. Monitoring per policy, continuous 3. Planning unmedicated . Candidate for analgesia of choice.??? 4. Patient encouraged to reposition and ambulate to promote physiologic labor and .?? 5. Planning AMTSL, to continue iron PO PP? 6. Anticipate OB Result Labs Blood Type: A (+) positive Rubella: immune RPR/VDLR: nonreactive GBS Status: negative HBsAG: negative OB Exam Physical Exam Vital signs: Pulse BP Pulse Ox 88 106/58 L 99 01/14/25 07:28 01/14/25 07:28 01/14/25 07:25 Narrative: Vitals Reviewed Constitutional:? Alert and oriented x3 HEENT:? Normocephalic, atraumatic Lungs:? Clear to auscultation bilaterally Heart:? Regular rate and rhythm, no murmur, rub or gallop Abdomen:? Soft, nontender, and gravid. Vertex by Willem's, confirmed with cervical exam. Baby feels ROT. Extremities:? No edema or erythema Cervix: 4 cm/70%/-1 station/vertex per nursing NST: 130 bpm/moderate variability/accelerations present/possible late and early decelerations intermittently/contractions q 4 min x 100-120 sec, palpating moderate
[2025-01-14 09:16] LABS: Basophils Percent Auto 0.3 % (0.0-3.0); Eosinophils Percent Auto 1.8 % (0.0-7.0); Hematocrit 33.5 % (33.0-51.0); Hemoglobin* 10.7 gm/dL (12.0-16.0); Immature Granulocytes Pct Auto 0.4 %; Lymphocytes Percent Auto 14.5 % (20-44); Mean Corpuscular HGB Conc 32 gm/dL (32-36); Mean Corpuscular Hemoglobin 26 pg (26-34); Mean Corpuscular Volume 83 fL (80-100); Monocytes Percent Auto 4.9 % (0.0-11.0); Neutrophils Percent Auto 78.1 % (42.0-72.0); Platelet Count* 197 K/uL (140-440); RDW Coefficient of Variation % 15.5 % (11.5-15.5); Red Blood Count 4.06 m/uL (4.00-5.20); White Blood Count* 11.96 K/uL (4.50-11.00)
[2025-01-14 09:21] LABS: Slide Review Reflex No
--- NOTE | 2025-01-14 11:48 | PM.OBPNL ---
Subjective Date Seen: 01/14/25 Narrative: Patient was admitted to Labor and Delivery for prodromal labor. She is a 24 year old at 41 1/7 weeks gestation. She feels her baby is in a better position, but still does have pain with contractions that wraps around her whole core. Good movement. Fluid continues to leak and be clear. No vaginal bleeding. We have done side lying releases and she has gone for a walk. She is declining a VE or augmentation at this time. G3 P Partner: Donna, Daughter and son at home. it another Boy! H&P completed by MAYRA Berman and MANUELA Jones CNM on 11/20/24? ? # Closely spaced pregnancies. Delivery -2022 # History of (d/t arrest of dilation chorioamnionitis) and successful TOLAC Consult: 10/31/[address] Duvall; Consent signed based on her personal history is 92% based on MFMU calculator 36 growth US: declines, normal growth US at 32 weeks #Size less than dates - Growth US 11/08: EFW 1992g at 70%ile, breech, MVP 6.5cm, FHR 125 bpm # Varicella equivocal. Rec PP vaccine.? # Breech at 31.4, RESOLVED Cephalic, confirmed by bedside US at 34.5 (11/30/2021) Consider US on admission #Anemia, Hgb 10.0 at 34.5 weeks Oral iron recommended MWF Objective Exam: Objective: Constitutional: Alert and oriented x3, no distress, coping well Vital signs stable, see nurse documentation Abdomen: gravid, contractions palpate moderate with contractions and soft between Cervix: deferred per patient request NST: 140 bpm/moderate variability/accelerations present/decelerations absent/contractions q 10 Vital Signs: Last Vital Signs Temp 98 F 01/14/25 11:09 Pulse 107 H 01/14/25 11:09 Resp 16 01/14/25 11:09 BP 129/77 01/14/25 11:09 Pulse Ox 99 01/14/25 07:25 Plan Plan: ASSESSMENT:?? 24 at 41 1/7 weeks gestation?? complicated by:??Anemia, breech (resolved), TOLAC Labor type:Spontaneous, Active labor?? Category 1 FHR pattern.??? Labor complicated by: TOLAC, anemia?? GBS negative ?? PLAN:?? 1. Routine intrapartum cares as ordered. Continue with expectant management per patient direction. Declines augmentation. 2. Monitoring per policy, continuous 3. Planning unmedicated . Candidate for analgesia of choice.??? 4. Patient encouraged to reposition and ambulate to promote physiologic labor and .?? 5. Planning AMTSL, to continue iron PO PP? 6. Anticipate -Dr Duvall aware of patient in unit.
--- NOTE | 2025-01-14 16:02 | PM.OBPNL ---
Subjective Date Seen: 01/14/25 Narrative: Patient was admitted to Labor and Delivery for prodromal labor. She is a 24 year old at 41 1/7 weeks gestation. Still does have pain with contractions that wraps around her whole core, but frequency has not increased. Good movement. Fluid continues to leak and be clear. No vaginal bleeding. she requested a VE to see where she was at. G3 P Partner: Shaq?, Daughter and son at home. it another Boy! H&P completed by MAYRA Berman and MANUELA Jones CNM on 11/20/24? ? # Closely spaced pregnancies. Delivery -2022 # History of (d/t arrest of dilation chorioamnionitis) and successful TOLAC Consult: 10/31/[address] Duvall; Consent signed based on her personal history is 92% based on MFMU calculator 36 growth US: declines, normal growth US at 32 weeks #Size less than dates - Growth US 11/08: EFW 1992g at 70%ile, breech, MVP 6.5cm, FHR 125 bpm # Varicella equivocal. Rec PP vaccine.? # Breech at 31.4, RESOLVED Cephalic, confirmed by bedside US at 34.5 (11/30/2021) Consider US on admission #Anemia, Hgb 10.0 at 34.5 weeks Oral iron recommended MWF Objective Exam: Objective: Constitutional: Alert and oriented x3, no distress, coping well Vital signs stable, see nurse documentation Abdomen: gravid, contractions palpate mild with contractions and soft between Cervix: AROM for forebag with no fluid return. Cervix also swept. 6 cm/50%/-2 station/vertex with palpable sutures, ROP position NST: 140 bpm/moderate variability/accelerations present/decelerations absent/contractions q 2-4 min Vital Signs: Last Vital Signs Temp 98.2 F 01/14/25 15:40 Pulse 117 H 01/14/25 15:40 Resp 16 01/14/25 15:40 BP 109/70 01/14/25 15:40 Pulse Ox 99 01/14/25 07:25 Plan Plan: ASSESSMENT:?? 24 at 41 1/7 weeks gestation?? complicated by:??Anemia, breech (resolved), TOLAC Labor type:Spontaneous, not yet Active labor?? Category 1 FHR pattern.??? Labor complicated by: TOLAC, anemia?? GBS negative ?? PLAN:?? 1. Routine intrapartum cares as ordered. Continue with expectant management per patient direction. Declines augmentation. Reviewed I would like to augment if things don't kick in after this exam to avoid infection risks. 2. Monitoring per policy, continuous 3. Planning unmedicated . Candidate for analgesia of choice.??? 4. Patient encouraged to reposition and ambulate to promote physiologic labor and .?? 5. Planning AMTSL, to continue iron PO PP? 6. Anticipate
[2025-01-14] MEDS: OXYTOCIN 30 unit/500 ML in NS 30 UNIT/500 ML BAG IVPB (19:29)
[2025-01-14] MEDS: diphenhydrAMINE 50 MG/ML inj 12.5 MG IVP (20:58)
[2025-01-14] MEDS: LACTATED RINGERS 1000 ML 1,000 ML 925 ML IV ×2 (21:57→22:49)
--- NOTE | 2025-01-14 22:43 | W.PM.OBVAGDE ---
OB Procedure Vag Delivery Mother Details Mother Details: The patient is a 24 year-old, 3, now Para 3003, admitted on 01/14/25 at 41w1d gestation. Admission Date: 01/14/25 Additional Details Amniotic Membrane Status: SROM Amniotic Membrane Rupture Date: 01/14/25 Amniotic Membrane Rupture Time: 08:09 Amniotic Membrane Fluid Description: Clear Analgesia/Anesthesia Type: None Waterbirth: No Pitcoin: Yes Intrapartal Events: Labor Augmentation, Distress and ROM >18 Hours Induction Method: per pitocin protocol Labor Onset: 15:56 Complete: 22:02 Pushin:02 Heart: heart tones during second stage were category 2 then 3. Initially deep variables intermittently with intermittent strong contractions in stage 1 and beginning of stage 2. Delivery hastened with encouragement with prolonged decel. Dr Duvall called to bedside with prolonged decel approximately 5 minutes before delivery. Maternal efforts were very productive and vacuum was not needed. Baby delivered without complication and vigorous with terminal meconium. Delivery Details Delivery Date: 01/14/25 Delivery Time: 22:17 Route of delivery: Infant Gender: Male Viability: Alive; Heart Rate Present Position at Delivery: OA Delivery Details: Patient was admitted for early labor suppor and progressed with augmentation of pitocin. SROM noted at 0809 with clear fluid. Lydia really struggled to not push as soon as active labor stages began at 6 cm dilation. She seemed to have expectations about how quickly things would go when it really was not yet time. She did an excellent job for a long time fighting the urge to push. Pitocin was consented as contractions were really not close enough together to be truly productive. I suspected baby was being held up by a cord as descent was correlating with some significant variables. Due to her very strong urge to push, a couple of times tried to reduce the cervix, but without success. Pitocin was titrated and continued to try to encourage her to not push. The third time we attempted cervical reduction, it was successful with further descent followed by variables, then a prolonged deceleration. Dr Duvall called to bedside, but over next 2 pushes, baby was moved to a large crown. Patient was complete at 2202 and pushing at well before that intermittently, then productively at 2202. of a viable male with terminal mec at 2217 in OA. Vertex delivered OA. No nuchal cord or shoulder. Body delivered easily and without incident. Infant passed to mothers abdomen with a vigorous cry. Cord was clamped and cut at > 5 minutes. APGARS were 8 at one minute and 8 at five minutes respectively. Intact placenta with a 3 vessel cord delivered spontaneously at 2223. Fundus firm. No lacerations identified. QBL 312 cc, EBL 175cc. Mother and baby stable; mother plans to breastfeed. Infant weight pending.? ? 1 Minute Interval Total Score: 8 5 Minute Interval Total Score: 8 Additional Details Shoulder Dystocia: No Placenta Delivery Time: 22:23 Placental Delivery Description: Spontaneous Procedure Done: Global Blood Loss: 487 Laceration: None Blood Loss Measurement Type: QBL (312 QBL, 175 SWQ=793 total) Bakri Used: No Sponge/Need Count Correct: Yes Cord Vessel Description: 3 Vessels and Clamped/Cut Event Summary Status: Mother and infant were stable after delivery. Disposition: floor
[2025-01-15 00:03] VITALS: BP 110/60; PULSE 95
[2025-01-15 00:18] VITALS: BP 106/55; PULSE 100
[2025-01-15 03:08] VITALS: BP 114/68; PULSE 98; RESP 16; TEMP 37.1; O2SAT 97
[2025-01-15 06:41] LABS: Hemoglobin* 9.4 gm/dL (12.0-16.0)
[2025-01-15 07:52] VITALS: BP 115/69; PULSE 107; RESP 18; TEMP 36.8; O2SAT 97
[2025-01-15] MEDS: DOCUSATE SODIUM 100 MG CAPSULE PO (08:00)
[2025-01-15] MEDS: FERROUS SULFATE 325 MG TABLET PO (08:00)
--- NOTE | 2025-01-15 08:07 | PM.OBPNVD1 ---
OB - PN:Subj Subjective Date Seen: 01/15/25 Narrative: Lydia is a 24 y.o. who was admitted to L & D for labor.? She had an uncomplicated NVD.? ?? The patient feels well.? The pain is well controlled with current medications.? She has no new complaints.? She is breast feeding and reports things are going well.? the patient has done well.? Vitals have been stable.? She has remained afebrile.? Has a good appetite, is tolerating a general diet.? She is voiding without difficulty.? She is passing gas and has not had a bowel movement.? She is ambulating and denies any dizziness.? Has Small amount of rubra lochia.? OB - PN: Obj Exam Physical Exam: Vital signs: Temp Pulse Resp BP Pulse Ox O2 Del Method 98.2 F 107 H 18 115/69 97 Room Air 01/15/25 07:52 01/15/25 07:52 01/15/25 07:52 01/15/25 07:52 01/15/25 07:52 01/15/25 07:52 Narrative: GENERAL APPEARANCE:? normal affect, alert, no distress? MOOD:? appropriate? HEENT: normocephalic, neck supple, full ROM? CHEST:? Symmetrical chest wall movement.? Normal respiratory effort.? Clear to auscultation ? HEART:? regular rate and rhythm? ABDOMEN:? soft, non-tender. Uterine fundus is firm, at Umbilicus, Midline and is appropriate for the stage of recovery.? Bowel sounds present.? PERINEUM:? mild edema of the perineum, intact? EXTREMITIES:? normal and no edema? OB - PN: Obj Data Labs Labs: Laboratory Results - last 24 hr 01/14/25 01/15/25 08:53 06:03 WBC 11.96 H RBC 4.06 Hgb 10.7 L 9.4 L Hct 33.5 MCV 83 MCH 26 MCHC 32 RDW Coeff of Mayela 15.5 Plt Count 197 Neut % (Auto) 78.1 H Lymph % (Auto) 14.5 L [place] % (Auto) 4.9 Eos % (Auto) 1.8 Baso % (Auto) 0.3 Neut # (Auto) 9.30 H Lymph # (Auto) 1.70 [place] # (Auto) 0.60 Eos # (Auto) 0.20 Baso # (Auto) 0.00 Abs Immat Gran (auto) 0.00 Imm/Tot Granulo (auto) 0.4 Blood Type A Positive Antibody Screen NEGATIVE OB - PN: A/P Delivery Assessment and Plan (1) care and examination of lactating mother: Status: Acute (2) , delivered: Status: Acute (3) Anemia: Status: Acute Plan day: 1 Plan: routine care Comments: G 3 P 3 status post uncomplicated NVD??? 1.? Continue route PP cares? 2.? .? May see if desired? 3.? Anticipate discharge home tomorrow? 4. ?Acute anemia.? Iron supplement ordered.
[2025-01-15] MEDS: ACETAMINOPHEN 500 MG TABLET 1000 MG PO (11:38)
[2025-01-15 12:48] VITALS: BP 127/64; PULSE 97; RESP 16; TEMP 36.6; O2SAT 97
[2025-01-15] MEDS: IBUPROFEN 600 MG TABLET PO (12:53)
[2025-01-15 18:00] VITALS: BP 113/68; PULSE 86; RESP 16; O2SAT 97
--- NOTE | 2025-01-15 20:15 | PM.OBDSVD1 ---
DS: Providers Provider Date Seen: 01/15/25 Date of admission: 01/14/25 07:57 Primary care physician: Not a Local Provider Admitting Clinician: Ginger Eldridge CNM Attending Physician on discharge: Nakia Price CNM Date of Discharge: 01/15/25 DS: Diagnosis Discharge Diagnosis (1) care and examination of lactating mother: Status: Acute (2) , delivered: Status: Acute (3) Anemia: Status: Acute Exam Narrative: Exam Narrative: see exam from earlier on this date. Const: Vital Signs, click to edit/add: Vital Signs - 24 hr 01/14/25 22:17 01/14/25 22:34 01/14/25 22:48 Temperature 98.0 F Pulse Rate 96 109 H Pulse Rate [Pulse Oximeter] Respiratory Rate Blood Pressure 116/56 L 118/58 L Blood Pressure [Le ft Arm] Pulse Oximetry Oxygen Delivery Me thod 01/14/25 23:03 01/14/25 23:18 01/14/25 23:33 Temperature Pulse Rate 84 86 97 Pulse Rate [Pulse Oximeter] Respiratory Rate Blood Pressure 103/57 L 109/56 L 101/55 L Blood Pressure [Le ft Arm] Pulse Oximetry Oxygen Delivery Me thod 01/14/25 23:48 01/15/25 00:03 01/15/25 00:18 Temperature Pulse Rate 114 H 95 100 Pulse Rate [Pulse Oximeter] Respiratory Rate Blood Pressure 109/59 L 110/60 106/55 L Blood Pressure [Le ft Arm] Pulse Oximetry Oxygen Delivery Me thod 01/15/25 03:08 01/15/25 07:52 01/15/25 12:48 Temperature 98.7 F 98.2 F 97.9 F Pulse Rate Pulse Rate [Pulse Oximeter] 98 107 H 97 Respiratory Rate 16 18 16 Blood Pressure Blood Pressure [Le ft Arm] 114/68 115/69 127/64 Pulse Oximetry 97 97 97 Oxygen Delivery Me thod Room Air Room Air Room Air 01/15/25 18:00 Temperature Pulse Rate Pulse Rate [Pulse Oximeter] 86 Respiratory Rate 16 Blood Pressure Blood Pressure [Le ft Arm] 113/68 Pulse Oximetry 97 Oxygen Delivery Me thod Room Air OB - DS: Summary Hospital Course Hospital Course: Lydia was seen earlier today and was not planning to go home. She has since decided she wants to be discharged at 24 hours. Please see earlier note Peripartum Data delivery method: Vaginal Laceration description: None complications: none Infant Gender: Male Discharge Plan: Home Status at Discharge Functional status at discharge: independent ambulation Overall status at discharge: patient is progressing back to baseline Time Spent with Patient Time attestation: Total time spent providing and/or coordinating discharge services: Time spent: Less than 30 minutes Discharge Plan Discharge Disposition: Home, Self-Care Date of Admission: 01/14/25 07:57 Attending Provider on Discharge: Nakia Price Primary Care Provider: Provider,Not a Local Condition: Stable Anticipated Discharge Date/Time: 01/15/25 12:00 Discharge Medications: New acetaminophen 500 mg Tablet 1,000 mg PO Q6H PRNQty: 0 0RF ferrous sulfate 325 mg (65 mg iron) Tablet 325 mg PO Q48H Qty: 60 0RF docusate sodium 100 mg Capsule 100 mg PO DAILY Qty: 90 0RF ibuprofen 600 mg Tablet 600 mg PO Q6H PRNQty: 60 0RF Continued One-A-Day -1 27 mg iron- 800 mcg-235 mg capsule 1 cap PO DAILY ferrous sulfate [Feosol] 325 mg (65 mg iron) tablet 325 mg PO QDAY Patient Comments: taking every other day magnesium 200 mg tablet 200 mg PO QDAY metoclopramide HCl [Reglan] 10 mg tablet 10 mg PO Q6H PRN (Reason: nausea and vomiting) Qty: 30 0RF Rx Instructions: Take 1 tablets with Tylenol for headaches. Discharge Orders: Discharge Order (Routine); Ordered 01/15/25 Ordered By: Nakia Price Patient Education: OB Care, OB Over the Counter Medication Information, OB Vaginal/Breast Feeding Additional Instructions: Discharge instructions were reviewed with the patient including signs and symptoms of infection and home going medications Nothing vaginally for 6 weeks: no tampons or intercourse Off Work or School for 6 weeks 2-week visit: discuss infant feeding concerns, review control options and screen for anxiety/depression. 6-week visit for an annual exam. consultation services are available to all mothers and babies for the first year after delivery.? To make an appointment, please call [phone]. Activity Level: Activity as Tolerated Discharge Diet: Regular Follow Up Appointments: [facility] [Provider Group] Forms: [employer] Info Instructions
[2025-01-17 02:18] LABS: Rapid Plasma Reagin (RPR) Non Reactive (Non Reactive)
== END 2025-01-15 23:14 | disposition home or self-care (01) | DRG 807 ==
LOC: OB OUT 07:59 → OB 07:59
PROVIDERS: Admitting Provider Midwife; Visit Provider Midwife
DX: O62.0 Primary inadequate contractions (principal); Z37.0 Single live birth; O76 Abnormality in fetal heart rate and rhythm complicating labor and delivery; O77.0 Labor and delivery complicated by meconium in amniotic fluid; O34.211 Maternal care for low transverse scar from previous cesarean delivery; O48.0 Post-term pregnancy; O99.02 Anemia complicating childbirth; D64.9 Anemia, unspecified; Z3A.41 41 weeks gestation of pregnancy
CPT/HCPCS: 36415; 85018; 85025; 86592; 86850; 86900; 86901; A9270; J1200; J7120

== ENCOUNTER 2025-06-26 12:15 | Outpatient (CLI) | payer OTHER, SELFPAY ==
--- NOTE | 2025-06-26 12:15 | CRLHL7_ITS ---
For Patients: As a result of the Cures Act, medical imaging exams and procedure reports are released immediately into your electronic medical record. You may view this report before your referring provider. If you have questions, please contact your health care provider. OB ULTRASOUND INDICATION: Dating and viability. TECHNIQUE: Real time grayscale imaging of the fetus was performed. Transvaginal. Transvaginal imaging performed to better demonstrate the endometrium and ovaries. LMP: Unknown LMP, recent delivery. Previous US: No. CRL: 1.6 cm. 8 w 0 d. OMAR: 02/05/2026. FHR: 169 BPM. Gestational sac: 3.6 cm. Appears within normal limits. Yolk sac: 2.6 mm. Appears within normal limits. Right ovary: 2.8 x 3.3 x 2.7 cm. CL. Left ovary: N/V. IMPRESSION: 1. Single living intrauterine measures 8 weeks 0 days with sonographic due date 02/05/2026. 2. Corpus luteal cyst right ovary. Alex Wiggins M.D. Diagnostic Radiologist [email or web address] MENDEL/amanda patel/Dictated by: Alex Wiggins MD @ 06/26/2025 2:11:00 PM (Electronically Signed)
== END 2025-06-26 12:16 | disposition home or self-care (01) ==
LOC: US 12:15
PROVIDERS: Visit Provider Advanced Practice Midwife
DX: O34.81 Maternal care for other abnormalities of pelvic organs, first trimester (principal); N83.11 Corpus luteum cyst of right ovary; Z3A.08 8 weeks gestation of pregnancy
CPT/HCPCS: 76817; 83021; 86592; 86703; 86704; 86706; 86762; 86787; 86803; 86850; 86900; 86901; 87086; 87340; 87491; 87591